=== PATIENT | female | born 1945 | race Caucasian/White ===

== ENCOUNTER → 2016-04-24 | Outpatient (CLI) | payer OTHER ==
[~2016-04-24] MED LIST: ADVA115A INH; BIOTPOW20 OR; COUM2.5T11 PO; FURO40TA2 PO; MELO15TA4 PO; OMEP40CA2 PO; PERC5TAB6 PO; PRED1TABL PO; PROVENTIL; TEGR200T PO; advair INH; calcium OR; fish oil OR; iron OR; magnesium OR; systane OU; vitamin D OR
[2016-04-24 11:08] LABS: INR 0.99
[2016-04-24 11:37] LABS: MEAN CORPUSCULAR HEMOGLOBIN 27.6 pg (27.0-33.0); MEAN CORPUSCULAR HGB CONC 32.3 g/dl (32.0-36.5); MEAN CORPUSCULAR VOLUME 85.6 fl (80.0-96.0); RED CELL DISTRIBUTION WIDTH 13.2 % (11.5-14.5); WHITE BLOOD COUNT 6.8 K/mm3 (4.0-10.0)
[2016-04-24 11:43] LABS: ALBUMIN 3.8 GM/DL (3.2-5.2); ALBUMIN/GLOBULIN RATIO 1.09 (1.00-1.93); ALKALINE PHOSPHATASE 114 U/L (45-117); ALT/SGPT 13 U/L (12-78); ANION GAP 8 MEQ/L (8-16); AST/SGOT 13 U/L (15-37); BILIRUBIN,TOTAL 0.6 MG/DL (0.2-1.0); BLOOD UREA NITROGEN 15 MG/DL (7-18); CALCIUM LEVEL 8.8 MG/DL (8.8-10.2); CARBON DIOXIDE LEVEL 31 MEQ/L (21-32); CHLORIDE LEVEL 100 MEQ/L (98-107); CREATININE FOR GFR 0.57 MG/DL (0.55-1.02); GLOMERULAR FILTRATION RATE > 60.0 (>45); GLUCOSE, FASTING 100 MG/DL (80-110); POTASSIUM SERUM 3.6 MEQ/L (3.5-5.1); SODIUM LEVEL 139 MEQ/L (136-145); TOTAL PROTEIN 7.3 GM/DL (6.4-8.2)
--- NOTE | 2016-04-24 12:01 | REP ---
Chest two views HISTORY: Asthma Comparison: 05/23/2015 The lungs are clear. The heart is normal in size. The pulmonary vasculature is normal in appearance. A hiatal hernia is present. The bony structure is intact. IMPRESSION: No acute disease. Signed by Duglas Rivera MD 04/24/2016 11:53 A
== END ==
LOC: M ADMPAT 09:14
PROVIDERS: ATTEND Orthopaedic Surgery
DX: Z01.818 Encounter for other preprocedural examination (principal); M17.12 Unilateral primary osteoarthritis, left knee; Z79.899 Other long term (current) drug therapy

== ENCOUNTER 2016-05-08 05:44 | Inpatient (IN) | payer OTHER ==
[2016-04-24 10:42] VITALS: BP 120/78
--- NOTE | 2016-05-03 14:58 | HPE ---
DATE OF ADMISSION: 05/08/2016 ADMISSION DIAGNOSIS: Symptomatic left knee osteoarthritis. HISTORY OF PRESENT ILLNESS: This is a pleasant female with continuing symptomatic left knee osteoarthritis. She has consented for a left total knee arthroplasty per Dr. Barrie Acosta. Medical optimization per Marcelino Joe. X-rays are consistent with advanced osteoarthritis. ALLERGIES: None known to drugs. CURRENT MEDICATION LIST: Includes: - vitamin C 500 mg one tablet orally daily as needed - aspirin 81 mg daily released one tablet orally once a day - nebulizer tubing mouth piece for use with inhalation medications as needed - Mucinex 600 mg extended release 12 hour one tablet as needed orally every 12 hours - multivitamin gset-pfi-qfqsqxc tablet one tablet orally daily - prednisone 1 mg tablet three tablets orally daily - Advair HFA 115-21 mcg/ACT aerosol two puffs twice a day - Ventolin HFA 108 (90 base mcg/ACT solution two puffs inhalation every 6 hours as needed - calcium 600 plus D 600-400 mg unit tablet one tablet orally twice daily - vitamin D 5000 unit tablet one orally once daily - Lasix 40 mg tablet one tablet orally twice daily - omeprazole 20 mg capsule delayed release one capsule orally daily - Mobic 15 mg one tablet orally once a day - hydrocodone/acetaminophen 5/325 tablet one tablet orally twice daily as needed , MDD 2. - Flonase 15 mcg/ACT suspension one puff in each nostril nasally once a day as needed - Claritin 10 mg tablet one tablet orally once a day - Tegretol 100 mg tablet chewable one tablet orally twice a day - ferrous sulfate - folic acid one capsule orally twice a day - compression stockings 20-30 mmHg, thigh high, venous stasis leg edema daily Medications that were stopped: Her levofloxacin, amoxicillin, omega 3, vitamin B12, ferrous sulfate 325 (65 FE), Zostavax, zinc, Tessalon. MEDICAL PROBLEM LIST: Includes: 1. Symptomatic left knee osteoarthritis. 2. Polymyalgia rheumatica. 3. Bilateral lower extremity edema. 4. Mild persistent asthma, uncomplicated. 5. Vitamin D deficiency. 6. Obstructive sleep apnea. 7. Gastroesophageal reflux disease (GERD) without esophagitis. 8. Obesity. PAST SURGICAL HISTORY Positive for thyroidectomy, subtotal 1949. Appendectomy 1971. Dilatation and curettage 1971 and 1985. Carpal tunnel release right 1999. Bunionectomy 12/2003. Hammertoe 12/2003. Alvarez's cyst removal 08/2005. Cataracts bilaterally 04/2007, 05/2007. EGD by Dr. Barrientos in 2003 and 2009. Colonoscopy 2000, 2003, and 2009. [facility] biopsy. Carpal tunnel release left Barrie Acosta 2010. Right total knee replacement Dr. Acosta, 06/06/2015. FAMILY HISTORY: Pertinent for coronary artery disease, diabetes, dementia, hypertension and CVA. SOCIAL HISTORY: She is a former smoker. It has been greater than 10 years since she has had a cigarette. Minimal ethanol intake. Denies illicit drugs. REVIEW OF SYSTEMS: Denies chest pain, shortness breath, dyspnea on exertion, fever, chills, malaise, upper respiratory or urinary tract symptoms. PHYSICAL EXAMINATION: Blood pressure 132/74, height 5 feet, weight 245, pulse 76, respirations 16, temperature 97.9. She is a pleasant obese white female in no acute distress. Alert and orientated times three. Mood and affect are appropriate. She is ambulating with a cane, slow steady favoring of the right lower extremity, antalgia about the left. Left lower extremity was inspected. Skin temperature, color, sensory and motor within normal limits. Knee range of motion is with crepitus and pain through flexion and extension, range is near zero extension. Flexion is just past 90. She is stable about the collateral ligaments, patella and quad tendons without palpable defects, can do a straight leg raise. No popliteal fossa mass or pain. Hip range of motion is not limited or irritable. Skin is intact at the bilateral lower extremities without significant edema. No infection. Bowels soft, nontender. Chest rises symmetrically. Neck supple. Negative jugular venous distention (JVD) or bruits. Normocephalic. Labs were reviewed. Leukocyte esterase trace. Urine blood 1+. EKG normal sinus rhythm. Chest x-ray no acute disease. Nasal, sinus and urine cultures showed no growth. IMPRESSION: 1. Left knee symptomatic osteoarthritis. 2. Patient consented for left total knee arthroplasty per Dr. Acosta. 3. Medical optimization per Ben Joe. 4. On-call to OR 2 grams IV Kefzol in OR. 5. Sequential compression devices (SCD) and TEDS in OR. 6. Patient had concern that she has recently been taking Tegretol for trigeminal neuralgia and it has given bouts of diarrhea. Therefore, she wants to make sure potential post operative stool softeners are considered. 7. Patient is also noting a history of some irritation secondary CAROLYN stockings. VALE
[2016-05-08] VITALS (7 sets, daily range): BP systolic 108–167; BP diastolic 55–75
[~2016-05-08] VITALS: Ht 152.4 cm; Wt 108.4 kg
[2016-05-08] MEDS ORDERED: LR 1,000 ML IV SCH ×3 (06:15→12:45)
[2016-05-08] MEDS ORDERED: ACETAMINOPHEN 500 MG TAB PO ONE (06:15)
[2016-05-08] MEDS ORDERED: COUM1TAB17 PO (06:22)
[2016-05-08] MEDS ORDERED: fentaNYL 100 MCG/2 ML INJECTION (J3010) As Ordered ONE ×2 (06:54→08:58)
[2016-05-08] MEDS ORDERED: MIDAZOLAM INJ 2 MG/2 ML VIAL (J2250) As Ordered ONE ×2 (06:54→09:45)
[2016-05-08] MEDS ORDERED: TYLE500T78 PO (06:58)
[2016-05-08] MEDS ORDERED: BUPIVACAINE HCL 0.5% 10 ML VIAL As Ordered ONE (07:21)
[2016-05-08] MEDS ORDERED: ROPIvacaine 0.5% 30 ML INJECTION (J2795) As Ordered ONE (07:21)
[2016-05-08] MEDS ORDERED: EPINEPHrine INJ 1 MG/ML 1ML VIAL/AMP As Ordered ONE (07:21)
[2016-05-08] MEDS ORDERED: TRANEXAMIC ACID 100 MG/ML 10ML VIAL As Ordered ONE (07:21)
[2016-05-08] MEDS ORDERED: ceFAZolin 1GM INJ (J0690) As Ordered ONE (07:22)
[2016-05-08] MEDS ORDERED: MIDAZOLAM INJ 2 MG/2 ML VIAL (J2250) IV ONE (07:45)
[2016-05-08] MEDS ORDERED: fentaNYL 100 MCG/2 ML INJECTION (J3010) IV ONE (07:45)
[2016-05-08] MEDS ORDERED: ROCURONIUM BROMIDE 50 MG/5 ML VIAL As Ordered ONE (09:45)
[2016-05-08] MEDS ORDERED: fentaNYL 250 MCG/5 ML INJECTION (J3010) As Ordered ONE (09:45)
[2016-05-08] MEDS ORDERED: PROPOFOL 200 MG/20 ML VIAL As Ordered ONE (09:45)
[2016-05-08] MEDS ORDERED: HYDROmorphone HCL 2 MG/ML 1ML VIAL (J1170) As Ordered ONE (09:47)
[2016-05-08] MEDS ORDERED: NEOSTIGMINE 1MG/ML 5 ML SYRINGE (J2710) As Ordered ONE (09:54)
[2016-05-08] MEDS ORDERED: GLYCOPYRROLATE INJ 0.2 MG/ML 2 ML VIAL As Ordered ONE (09:54)
[2016-05-08] MEDS ORDERED: EPINEPHrine INJ 1 MG/ML 1ML VIAL/AMP ONE (10:24)
[2016-05-08] MEDS ORDERED: ROPIvacaine 0.5% 30 ML INJECTION (J2795) ONE (10:24)
[2016-05-08] MEDS ORDERED: dexameTHASONE 10 MG/1 ML VIAL PRES.FREE (J1100) ONE (10:24)
[2016-05-08] MEDS ORDERED: MORPHINE PCA 1MG/ML 100ML CADD As Ordered ONE (12:06)
[2016-05-08] MEDS: fentaNYL 100 MCG/2 ML INJECTION (J3010) IV PRN ×4 (12:09→12:51)
[2016-05-08] MEDS ORDERED: NALOXONE INJ 0.4 MG/1 ML VIAL (J2310) IV PRN (12:45)
[2016-05-08] MEDS ORDERED: FLEET ENEMA PR PRN (12:45)
[2016-05-08] MEDS ORDERED: PATIENT IS CURRENTLY ON AN ON-Q PAIN BUSTER PAIN RELIEF SYSTEM XX SCH (12:45)
[2016-05-08] MEDS ORDERED: diphenhydrAMINE INJ 50MG/ML VIAL (J1200) IV PRN (12:45)
[2016-05-08] MEDS ORDERED: NALBUPHINE HCL 10 MG/ML AMP (J2300) IV PRN (12:45)
[2016-05-08] MEDS ORDERED: HYDROmorphone HCL 1 MG/ML SYRINGE (J1170) IV PRN (12:45)
[2016-05-08] MEDS ORDERED: ACETAMINOPHEN TAB 650MG DOSE (2X325MG) PO PRN (12:45)
[2016-05-08] MEDS ORDERED: EPIDURAL/PCA KEYS XX PRN (12:45)
[2016-05-08] MEDS ORDERED: ONDANSETRON 4MG/2ML VIAL (J2405) IV PRN ×2 (12:45)
[2016-05-08] MEDS ORDERED: MORPHINE PCA 1MG/ML 100ML CADD IV PRN (12:45)
[2016-05-08] MEDS: PERCOCET 5MG/325MG TAB PO PRN ×2 (13:15→13:35)
[2016-05-08] MEDS: LR 1,000 ML IV SCH (16:29)
[2016-05-08] MEDS ORDERED: IPRATROPIUM 0.5MG/ALBUTEROL 2.5MG INH SOL UD 3ML (DUONEB)(J7620) NEB PRN (16:30)
[2016-05-08] MEDS ORDERED: WARFARIN SOD 5 MG TAB PO SCH (17:00)
--- NOTE | 2016-05-08 17:36 | RO ---
DATE OF PROCEDURE: 05/08/2016 PREPROCEDURE DIAGNOSIS: Valgus degenerative arthritis of left knee. POSTPROCEDURE DIAGNOSIS: Valgus degenerative arthritis of left knee. PROCEDURE: Left total knee arthroplasty using cruciate-sacrificing size #3 femoral component with a 10 mm rotating platform posterior stabilized polyethylene insert with a 2.5 mm metal tibial tray with a 32 mm polyethylene button. All components were cemented. Prosthesis was made by [employer]. It was a PFC knee. SURGEON: Dr. Harsha Acosta [employer] PROGRAMMER: Mr. Rolo Joshi ANESTHESIA: General endotracheal tube anesthesia. SPECIMENS: Joint surface. ESTIMATED BLOOD LOSS: Less than 20 mL. Postoperative PainBuster catheter utilized. DESCRIPTION OF PROCEDURE: Antibiotics were given intravenously preoperatively and then after a left femoral nerve block was attempted and then an attempted spinal which was unable to be obtained, a general endotracheal tube anesthetic was established. Tourniquet was placed on the left upper thigh, not inflated, then the left lower extremity was prepped and draped in the usual sterile fashion and then elevated. After appropriate time out, the tourniquet was inflated and then we made a longitudinal incision for a medial parapatellar approach to the knee. She had a very large lipomatous distal thigh, and we took our time to carefully dissect down through the fatty tissue, making sure we had good hemostasis with the Bovie down to the joint capsule and medial parapatellar arthrotomy performed. Limited subperiosteal dissection medially was performed on the tibia. We released laterally along the proximal tibia. We were unable to marely the patella initially, so we subluxed it laterally, flexed the knee, excised the anterior cruciate ligament (ACL), then placed the drill down the center of the femoral canal, followed by the distal femoral cutting jig, initially set at 5 degrees of valgus. I did take off all remaining cartilage off the medial femoral condyle such that the jig would fit as flush as possible. We set it at 7, it fit a little bit better but then I wanted to be sure we were not taking off too much distal lateral femoral bone stock, did not want to have to augment. Thus, I switched back to the 5 degree valgus cut at 10 mm resection level and pinned the block into that position and then performed the distal femoral cut. AP sizing jig measured between a 2-1/2 and a 3; thus, I pinned it at that position and called for a size #3 4-in-1 block. The external rotation pins were placed, followed by the 4-in-1 block, and then we made sure that we appeared to be parallel to the epicondylar axis and perpendicular to Gordon's line. Parallel to the epicondylar axis and the [place]'s line appeared to be perpendicular to that line as well. Anterior, posterior, chamfer cuts were then performed. We then exposed the proximal tibia. She had a significant lateral dishing on the tibial condyle, not the femoral condyle. But I set it such that we were taking 10 mm off the good side medially and that allowed us to take at least 2 mm off the lateral side. Block was pinned into position, and then we made sure we were parallel to the mechanical axis using the extramedullary alignment jig, then performed a proximal tibial osteotomy and the resection came out just right. We then placed the lamina [employer] laterally, performed a completion medial meniscectomy, debridement of the posterior medial osteophytes, then placed the lamina [employer] laterally and performed a completion lateral meniscectomy and debridement of remaining posterolateral osteophytes. A 10 mm block did fit, but it was a bit tight laterally, felt nicely balanced medially. Thus, I did do a limited lateral release by making small stab incisions with a 15 blade along the tight posterolateral lateral collateral ligament structure and this allowed a bit better balance. But a 10 mm fit nice in both flexion and extension with good stability. It is noteworthy that actually prior to doing the soft tissue balance, I actually went ahead and excised the remaining portion of the anterior cruciate ligament (ACL) and the posterior cruciate ligament (PCL) and then performed a box osteotomy with the distal femoral jig. Once that had been completed, then I did the spacer blocks and then balanced it with a small lateral release. We then exposed the proximal tibia, sized for a 2.5 tray, which was pinned, reamed and broached in position followed by the femoral component, then the trial polyethylene, 10 mm, was placed and, again, the knee was very stable to varus/valgus stress testing in flexion and in extension, and she had good range of motion. We brought the knee into extension, everted the patella, performed a patellar osteotomy, sized for a 32 button, lug holes drilled, patellofemoral prosthesis was placed and the patellofemoral tracking showed just a little bit of tendency for lateral translation; thus, I did do a limited lateral retinacular release from inside. I felt this was the appropriate size components to use. Thus, at this point, my food and nutrition services assistant, Mr. Rolo Joshi, mixed the cement on the back table. He was also critical to the success of this difficult operation by appropriately manipulating the knee, applying appropriate soft tissue retraction and helped close the wound and helped prepare the patient amongst many other tasks. While he was mixing the cement on the back table, I removed all of the trial components and prepared the bone surfaces for cementing with a copious amount of pulsatile lavage irrigant solution, dried the surfaces thoroughly. Then, we cemented the tibial tray, removed the excess cement, cemented the femoral component, removed the excess cement, then placed the polyethylene and brought the knee into extension and then cemented the patellar button and held it with a clamp until the cement had hardened. We copiously irrigated out the knee joint as the cement was hardening, then placed the tranexamic acid. Then, we began closing the arthrotomy by first doing a bit of a [id number] to help tighten medially, such to improve patellofemoral tracking with two #1 PDS sutures. I closed the apex with two #1 PDS sutures, then a running #1 Stratafix was used, double-armed, to close the capsule, then the tourniquet was released. We irrigated between layers, placed the PainBuster catheter at this point, after the arthrotomy had been closed, and then we closed the deep subdermal tissues with a double layer, given the large amount of adipose tissue, of PDS sutures, then the skin was closed with cyndee, covered with a Adaptic dry sterile bulky dressing. She was then awakened from general endotracheal tube anesthesia after having tolerated the procedure well and transferred to the recovery room in stable condition. There were no intraoperative complications.
--- NOTE | 2016-05-08 17:47 | CR.PDOC ---
[facility] Consultation Consultation DATE OF CONSULTATION: 05/08/16 PRIMARY CARE PHYSICIAN: Marcelino DELATORRE REFERRING PROVIDER: Dr. Barrie Acosta ATTENDING PHYSICIAN: Dr. Pineda Johnson REASON FOR CONSULTATION/CHIEF COMPLAINT: Medical management. HISTORY OF PRESENT ILLNESS: 70-year-old with a past medical history of osteoarthritis, symptomatic left knee osteoarthritis, polymyalgia rheumatica, trigeminal neuralgia, bilateral lower extremity edema, mild uncomplicated persistent asthma , vitamin D deficiency, obstructive sleep apnea on CPAP at setting 13, GERD without esophagitis, obesity, is presenting to [facility] status- post left total knee arthroplasty for symptomatic left knee osteoarthritis postoperative day #0. States that she has had pain in her left knee for at least 20 years that was bothering her and it was progressively worsening. Procedure was done by Dr. Barrie Acosta. She denies fever, chills, chest pain, shortness of breath, vomiting, abdominal pain, diarrhea, constipation, rashes or lesions anywhere. She admits to nausea, and 4 out of 10 pain in her left buttock radiating down to her right calf just below the knee that she attributes to sciatic nerve pain. She denies pain in her left knee at this time. The hospitalist team was consulted for medical management. ALLERGIES: Environmental and seasonal HOME MEDICATIONS: Prednisone 3 mg daily (1 mg tablet 3 tablets orally daily) Carbamazepine 100 mg 3 times a day Lasix 40 mg 1 tablet twice a day Prilosec 20 mg daily Meloxicam 15 mg one tablet orally once a day--being held due to starting coumadin for DVT ppx Advair HFA 115-21 mcg/ACT aerosol 2 puffs twice a day Ventolin HFA 108 (90 base mcg/ACT solution 2 puffs inhalation q6 hours PRN Ferrous sulfate twice a day Vitamin D3 5000 unit tablet one orally once daily Calcium 600 plus D 600-400 mg unit tablet one tablet PO BID Vitamin C 500 mg 1 tablet orally daily when necessary Aspirin 81 mg daily 1 tablet orally once a day Nebulizer tubing mouthpiece for use with inhalation medications as needed Mucinex 600 mg extended release 12 hour 1 tablet as needed orally every 12 hours Multivitamin abfy-irl-qqxldpf tablet 1 tablet orally daily Omeprazole 20 mg capsule delayed release one capsule orally daily Hydrocodone/Acetaminophen 5/325 one tablet orally twice daily as needed, MDD: 2 Flonase 15 mcg/ACT suspension one puff in each nostril nasally once a day as needed Claritin 10 mg tablet one tablet orally once a day Tegretol 100 mg tablet chewable one tablet orally twice a day Folic Acid one capsule orally twice a day PAST MEDICAL HISTORY: Symptomatic left knee osteoarthritis And polymyalgia rheumatica Trigeminal Neuralgia Lateral lower extremity edema Mild persistent asthma uncomplicated. Vitamin D deficiency. History of sleep apnea. Obstructive sleep apnea not on oxygen, CPAP: 13 Obesity. Osteoarthritis GERD without esophagitis. PAST SURGICAL HISTORY: Subtotal thyroidectomy 1950 Appendectomy 1971 Dilatation and curettage 1971 in 1985 Right Carpal tunnel release 1999 Left carpal tunnel release 2010, Dr. Barrie Acosta Bunionectomy December 2003 Hammertoe December 2003 Alvarez cyst removal August 2005 Bilateral cataracts April 2007, May [address] Barrientos in 2009 Colonoscopy 2000, 2003, and 2009 [facility] Biopsy Right total knee replacement Dr. Acosta 06/06/15 FAMILY HISTORY: Father: Massive coronary, [place] Mother: Hypertension, heart disease Siblings: Sister who of CVA, had hypertension and diabetes Coronary artery disease, diabetes, dementia, hypertension, and CVA. SOCIAL HISTORY: Marital status and/or living arrangements: Lives at home alone with one dog. Occasionally, has grandchildren over. Employment: Retired nurse at [employer] Tobacco use: Smoked 1 pack per day for around 2 years. Has not smoked in greater than 40 years. ETOH: Drinks occasionally once or twice a month, never more than 2 drinks in a day. Illicit drug use: Denies IV drug use: Denies Other relevant social factors: Admits to pneumonia shot in 2011 and 2015, but states that there is one more pneumonia shot that she needs now. Admits to flu shot received in fall of 2016. REVIEW OF SYSTEMS: CONSTITUTIONAL: Denies fevers, chills HEENT: Denies headache CARDIOVASCULAR: Denies chest pain RESPIRATORY: Denies shortness of breath GENITOURINARY: Denies urinary frequency, dysuria, hematuria MUSCULOSKELETAL: Denies left knee pain. Admits to swelling in her lower extremities bilaterally that are chronic. Admits to sciatic nerve pain in her left buttock radiating down to her left calf just below the knee. GASTROINTESTINAL: Denies abdominal pain, vomiting, diarrhea, constipation. Admits to nausea. SKIN: Denies rashes or lesions anywhere. NEUROLOGICAL: Denies dizziness. PSYCHIATRIC: Denies depressed or anxious mood. ENDOCRINE: Denies fatigue, heat intolerance/cold intolerance. HEMATOLOGIC/LYMPHATIC: Denies easy bruising or bleeding. ALLERGIC/IMMUNOLOGIC: Admits to environmental/seasonal allergies. PHYSICAL EXAMINATION: MOST RECENT VITAL SIGNS: Temperature 97.9, pulse 77, respiratory rate 16, blood pressure 120/59, pulse ox: 95% on 2 L nasal cannula I/O: 320/300, +20 mL balance, weight: 111 kg GENERAL APPEARANCE: Pleasant, obese, elderly female who is resting comfortably in bed. Awake, alert, oriented 3. In no acute distress. HEENT: Normocephalic atraumatic. Sclera nonicteric. No external nasal deformities. Lips intact. RESPIRATORY: Lungs clear to auscultation bilaterally. No wheezes, rales, rhonchi. CARDIOVASCULAR: Positive S1, S2. Regular rate and rhythm. Distant heart sounds likely secondary to body habitus.. ABDOMEN: Soft, obese, nontender to palpation, nondistended, bowel sounds hypoactive but present. EXTREMITIES: Positive left lower extremity pitting edema and mild right lower extremity edema appreciated bilaterally. Left knee wrapped postsurgically. VASCULAR: +2 dorsalis pedis pulses palpable bilaterally. +2 radial pulses palpable bilaterally. NEUROLOGICAL: No focal neurologic deficits appreciated bilaterally PSYCHIATRIC: Normal mood and affect. Cooperative. LABORATORY DATA: No new labs today. ASSESSMENT/PLAN: 70-year-old female with past medical history of symptomatic left knee osteoarthritis, positive polymyalgia rheumatica, trigeminal neuralgia, bilateral lower chicas edema, uncomplicated mild persistent asthma, vitamin D deficiency, history of sleep apnea, GERD, obesity, osteoarthritis, seasonal allergies, is presenting status post left total knee arthroplasty postoperative day #0. The hospitalist team is being consulted for medical management. Left knee osteoarthritis status post left total knee replacement: Perioperative management, pain management, physical therapy, activity, diet, and DVT prophylaxis as per orthopedics. Monitor daily CBC, BMP, PT/INR (patient on coumadin as per Orthopedics). Bowel Regimen as per Primary Team: Sendiamondot S Polymyalgia rheumatica: Continue prednisone 3 mg daily. Follow up as outpatient. Trigeminal neuralgia: Continue carbamazepine 200 mg 3 times a day Bilateral lower extremity edema: Hold Lasix today. We'll restart tomorrow as per primary team. We'll monitor daily weights and I's and O's. Monitor daily Mg levels. Mild persistent asthma uncomplicated: Continue Advair and duo nebs as needed. Vitamin D deficiency: Continue home meds including vitamin D3 5000 units and calcium. Obstructive sleep apnea: Patient has CPAP at bedside from home. Follow-up KENDALL protocol and use home CPAP daily. GERD without esophagitis: Continue omeprazole. Obesity: Recommend weight loss, diet, and exercise as tolerated. Physical therapy as per orthopedics. Environmental seasonal allergies: Continue home medications including Mucinex, Flonase, Claritin. DVT prophylaxis: Has been placed on Coumadin as per orthopedics. Being managed by orthopedics. GI prophylaxis: Continue home medication of omeprazole 20 mg daily. CODE STATUS: Full code Healthcare proxy: Son: Roosevelt Daly, Alternate: Daughter Mary Estevez Vital Signs/I&O Vital Signs Date Time Temp Pulse Resp B/P Pulse Ox O2 Delivery O2 Flow Rate FiO2 05/08/16 14:15 2.0 05/08/16 13:55 97.9 77 16 120/59 95 Nasal Cannula Allergies Coded Allergies: No Known Allergies (Verified Allergy, Unknown, 12/31/03) Home Medications Scheduled ([calcium]) 600 TAB OR BID (Reported) ([fish oil]) 1,200 MG OR DAILY (Reported) ([iron]) 1 TAB OR BID (Reported) ([magnesium]) 1 TAB OR DAILY (Reported) ([proventil inh]) PRN (Reported) ([systane]) 1 DROP OU QID (Reported) ([vitamin D]) 5,000 UNITS OR DAILY (Reported) Biotin (Vitamin H) (Biotin) 1 Pow Pow 1 TAB OR DAILY (Reported) Carbamazepine (Tegretol) 200 Mg Tab 100 MG PO TID (Reported) Furosemide (Furosemide) 40 Mg Tab 40 MG PO BID (Reported) Omeprazole (Omeprazole) 40 Mg Cap 40 MG PO DAILY (Reported) Prednisone (Prednisone) 1 Mg Tab 3 MG PO DAILY (Reported) Salmeterol/Fluticasone (Advair Hfa 115-21 Mcg/Act) 1 Aer Aer 2 PUFF INH BID ( Reported) Warfarin Sod (Coumadin) 2.5 Mg Tab #90 1 TAB PO ASDIRECTED MDD = 6 tabs Scheduled PRN Acetaminophen (Tylenol Extra Strength) 500 Mg Tab 500 MG PO PRN PRN (Reported) Oxycodone/Acetaminophen (Percocet 5-325 mg) 1 Tab Tab #40 1-2 TAB PO Q4H PRN PRN PAIN MDD = 8 GME ATTESTATION GME ATTESTATION My preceptor for this patient encounter was Dr. Susana Lares, and was physically present in the building during the encounter and was fully available. As needed , all aspects of the patient interview, examination, medical decision making process, and medical care plan development were reviewed and approved by the preceptor. Preceptor is aware and concurs with the plan as stated in the body of this note and will attest to such by his/her cosignature. ATTENDING NOTE I have both independently examined this patient as well as reviewed the H&P. I have discussed in detail with the resident the findings and plan of treatment as documented in the residents note. I will continue to follow the patient and offer further guidance to the patients care as necessary during this hospital stay. Susana DOBSON,LUIS ENRIQUE OGME-1 May 08, 2016 17:47 SUSANA LARES MD May 14, 2016 08:36
[2016-05-08] MEDS: predniSONE 1 MG TAB PO SCH (17:48)
[2016-05-08] MEDS: carBAMazepine XR 100 MG TAB PO SCH ×2 (17:49→21:41)
[2016-05-08] MEDS: ADVAIR HFA 115/21 INHALER INH SCH (21:00)
[2016-05-08] MEDS: SENOKOT S TAB PO SCH ×2 (21:00→21:41)
[2016-05-09] MEDS: LR 1,000 ML IV SCH (01:15)
[2016-05-09 02:00] VITALS: BP 133/86
[2016-05-09 06:00] VITALS: BP 141/63
[2016-05-09] MEDS ORDERED: PERCOCET 5MG/325MG TAB PO PRN (06:45)
[2016-05-09] MEDS ORDERED: ONDANSETRON 4 MG TAB (S0181) PO PRN (06:45)
[2016-05-09 08:22] LABS: INR 1.36
[2016-05-09 08:25] LABS: ANION GAP 9 MEQ/L (8-16); BLOOD UREA NITROGEN 8 MG/DL (7-18); CALCIUM LEVEL 8.4 MG/DL (8.8-10.2); CARBON DIOXIDE LEVEL 28 MEQ/L (21-32); CHLORIDE LEVEL 100 MEQ/L (98-107); CREATININE FOR GFR 0.68 MG/DL (0.55-1.02); GLOMERULAR FILTRATION RATE > 60.0 (>45); GLUCOSE, FASTING 122 MG/DL (80-110); MAGNESIUM LEVEL 1.7 MG/DL (1.8-2.4); POTASSIUM SERUM 3.8 MEQ/L (3.5-5.1); SODIUM LEVEL 137 MEQ/L (136-145)
[2016-05-09] MEDS: predniSONE 1 MG TAB PO SCH (08:34)
[2016-05-09] MEDS: MIRALAX *UNIT DOSE* 17GM PACKET PO SCH (08:35)
[2016-05-09] MEDS: OMEPRAZOLE 20 MG CAP PO SCH (08:35)
[2016-05-09] MEDS: PERCOCET 5MG/325MG TAB PO PRN ×4 (08:35→23:32)
[2016-05-09] MEDS: MOM 30ML SUSPENSION UDC PO SCH (08:35)
[2016-05-09] MEDS: SENOKOT S TAB PO SCH ×2 (08:36→20:46)
[2016-05-09 08:43] LABS: MEAN CORPUSCULAR HEMOGLOBIN 27.3 pg (27.0-33.0); MEAN CORPUSCULAR HGB CONC 31.7 g/dl (32.0-36.5); RED CELL DISTRIBUTION WIDTH 12.8 % (11.5-14.5); WHITE BLOOD COUNT 8.5 K/mm3 (4.0-10.0)
--- NOTE | 2016-05-09 09:44 | REP ---
Clinical: Status post knee replacement. Technique AP and cross-table lateral views. Findings: The patient is status post left knee replacement with normal positioning and appearance to the femoral and tibial components. Overlying postsurgical changes appreciated. Impression: Status post left knee replacement. Signed by Ben Broussard MD 05/09/2016 09:35 A
[2016-05-09] MEDS: carBAMazepine XR 100 MG TAB PO SCH ×3 (11:16→20:46)
[2016-05-09] MEDS: ADVAIR HFA 115/21 INHALER INH SCH ×2 (12:27→20:54)
[2016-05-09 14:00] VITALS: BP 136/65
[2016-05-09] MEDS ORDERED: WARFARIN SOD 5 MG TAB PO ONE (17:00)
[2016-05-09 22:00] VITALS: BP 166/72
[2016-05-10] MEDS: PERCOCET 5MG/325MG TAB PO PRN ×5 (04:32→21:07)
[2016-05-10 06:00] VITALS: BP 146/70
[2016-05-10] MEDS: ADVAIR HFA 115/21 INHALER INH SCH ×2 (07:08→20:10)
[2016-05-10 08:04] LABS: MEAN CORPUSCULAR HEMOGLOBIN 27.7 pg (27.0-33.0); MEAN CORPUSCULAR HGB CONC 33.1 g/dl (32.0-36.5); MEAN CORPUSCULAR VOLUME 83.6 fl (80.0-96.0); RED CELL DISTRIBUTION WIDTH 12.6 % (11.5-14.5); WHITE BLOOD COUNT 7.9 K/mm3 (4.0-10.0)
[2016-05-10 08:10] LABS: INR 1.96
[2016-05-10 08:14] LABS: ANION GAP 7 MEQ/L (8-16); BLOOD UREA NITROGEN 6 MG/DL (7-18); CALCIUM LEVEL 8.1 MG/DL (8.8-10.2); CARBON DIOXIDE LEVEL 30 MEQ/L (21-32); CHLORIDE LEVEL 99 MEQ/L (98-107); CREATININE FOR GFR 0.45 MG/DL (0.55-1.02); GLOMERULAR FILTRATION RATE > 60.0 (>45); GLUCOSE, FASTING 132 MG/DL (80-110); MAGNESIUM LEVEL 1.8 MG/DL (1.8-2.4); POTASSIUM SERUM 3.6 MEQ/L (3.5-5.1); SODIUM LEVEL 136 MEQ/L (136-145)
[2016-05-10] MEDS: carBAMazepine XR 100 MG TAB PO SCH ×3 (08:49→21:07)
[2016-05-10] MEDS: predniSONE 1 MG TAB PO SCH (08:49)
[2016-05-10] MEDS: SENOKOT S TAB PO SCH ×2 (08:50→21:00)
[2016-05-10] MEDS: MOM 30ML SUSPENSION UDC PO SCH (08:50)
[2016-05-10] MEDS: MIRALAX *UNIT DOSE* 17GM PACKET PO SCH (08:50)
[2016-05-10] MEDS: OMEPRAZOLE 20 MG CAP PO SCH (08:50)
[2016-05-10 14:00] VITALS: BP 142/67
[2016-05-10] MEDS ORDERED: WARFARIN SOD 1 MG TAB PO ONE (17:00)
[2016-05-10 22:00] VITALS: BP 168/70
[2016-05-11] MEDS: PERCOCET 5MG/325MG TAB PO PRN ×3 (02:15→12:20)
[2016-05-11 06:00] VITALS: BP 170/71
[2016-05-11 07:03] LABS: MEAN CORPUSCULAR HEMOGLOBIN 27.5 pg (27.0-33.0); MEAN CORPUSCULAR HGB CONC 32.7 g/dl (32.0-36.5); MEAN CORPUSCULAR VOLUME 84.1 fl (80.0-96.0); RED CELL DISTRIBUTION WIDTH 12.8 % (11.5-14.5); WHITE BLOOD COUNT 6.7 K/mm3 (4.0-10.0)
[2016-05-11 07:09] LABS: INR 1.73
[2016-05-11 07:16] LABS: ANION GAP 6 MEQ/L (8-16); BLOOD UREA NITROGEN 5 MG/DL (7-18); CALCIUM LEVEL 8.5 MG/DL (8.8-10.2); CARBON DIOXIDE LEVEL 32 MEQ/L (21-32); CHLORIDE LEVEL 99 MEQ/L (98-107); GLOMERULAR FILTRATION RATE > 60.0 (>45); GLUCOSE, FASTING 111 MG/DL (80-110); MAGNESIUM LEVEL 1.9 MG/DL (1.8-2.4); POTASSIUM SERUM 3.3 MEQ/L (3.5-5.1); SODIUM LEVEL 137 MEQ/L (136-145)
[2016-05-11] MEDS ORDERED: PERC5TAB6 PO (07:54)
[2016-05-11] MEDS ORDERED: COUM2.5T11 PO (07:54)
[2016-05-11] MEDS: ADVAIR HFA 115/21 INHALER INH SCH (08:03)
[2016-05-11] MEDS: MIRALAX *UNIT DOSE* 17GM PACKET PO SCH (09:00)
[2016-05-11] MEDS: SENOKOT S TAB PO SCH (09:00)
[2016-05-11] MEDS: MOM 30ML SUSPENSION UDC PO SCH (09:00)
[2016-05-11] MEDS: carBAMazepine XR 100 MG TAB PO SCH (09:09)
[2016-05-11] MEDS: OMEPRAZOLE 20 MG CAP PO SCH (09:09)
[2016-05-11] MEDS: predniSONE 1 MG TAB PO SCH (09:09)
[2016-05-11 10:00] VITALS: BP 135/62
--- NOTE | 2016-05-15 17:47 | DSES ---
DATE OF ADMISSION: 05/08/2016 DATE OF DISCHARGE: 05/11/2016 ATTENDING DOCTOR: Dr. Harsha Acosta. ADMISSION DIAGNOSIS: Osteoarthritis left knee. OTHER DIAGNOSES: Polymyalgia rheumatica. Asthma. Vitamin D deficiency. Sleep apnea. Gastric reflux disease. Obesity. DISCHARGE DIAGNOSIS Osteoarthritis left knee status post left total knee arthroplasty. OPERATION PERFORMED: Left total knee arthroplasty. HISTORY: This is a pleasant 70-year-old female with progressively worsening left knee pain and stiffness. She failed to improve with conservative management. She was admitted for elective knee replacement on the left side. HOSPITAL COURSE: The patient was admitted on the day of surgery, underwent a left total knee arthroplasty, which was uneventful. She did well in the postoperative period and her hospital course was without complications. She was up with physical therapy per protocol and her pain was controlled. On the day of discharge, she was doing well, weightbearing as tolerated on her left lower extremity. She will move her left knee to prevent stiffness. She will use adjusted dose Coumadin and thromboembolism deterrent (CAROLYN) stockings for 30 days postoperative for deep vein thrombosis (DVT) prophylaxis. She will resume her preoperative medications and diet. She was given instructions to include but not limited to wound monitoring, activity limitations. She will use oral pain medications for pain control. She will follow up in our office in 10-14 days for surgical followup. Please refer to the medical record for further details.
== END 2016-05-11 15:00 | disposition home or self-care (01) | DRG 470 ==
LOC: M OR 05:44 → M MS5PR 14:15
PROVIDERS: ADMIT Orthopaedic Surgery; ATTEND Orthopaedic Surgery
PROC: 0SRD0J9 Replacement of Left Knee Joint with Synthetic Substitute, Cemented, Open Approach (ICD-10-PCS; principal; 2016-05-08 07:30)
DX: M17.12 Unilateral primary osteoarthritis, left knee (principal); Z68.42 Body mass index [BMI] 45.0-49.9, adult; E66.01 Morbid (severe) obesity due to excess calories; Z79.82 Long term (current) use of aspirin; Z79.899 Other long term (current) drug therapy; D64.9 Anemia, unspecified; K21.9 Gastro-esophageal reflux disease without esophagitis; E55.9 Vitamin D deficiency, unspecified; J45.909 Unspecified asthma, uncomplicated; G47.33 Obstructive sleep apnea (adult) (pediatric); M35.3 Polymyalgia rheumatica; Z87.891 Personal history of nicotine dependence; Z79.52 Long term (current) use of systemic steroids

== ENCOUNTER → 2016-05-14 | Outpatient (REF) | payer OTHER ==
[~2016-05-14] MED LIST changes: +COUM1TAB17 PO; +TYLE500T78 PO
[2016-05-14 11:21] LABS: INR 1.5
== END ==
LOC: M SHH 11:02
PROVIDERS: ATTEND Internal Medicine
DX: Z51.81 Encounter for therapeutic drug level monitoring (principal); Z79.01 Long term (current) use of anticoagulants

== ENCOUNTER → 2016-05-17 | Outpatient (REF) | payer OTHER ==
[2016-05-17 12:33] LABS: INR 1.7
== END ==
LOC: M LAB REF 11:47
PROVIDERS: ATTEND Orthopaedic Surgery
DX: Z51.81 Encounter for therapeutic drug level monitoring (principal); Z79.01 Long term (current) use of anticoagulants

== ENCOUNTER → 2016-05-21 | Outpatient (REF) | payer OTHER ==
[2016-05-21 12:59] LABS: INR 2.13
== END ==
LOC: M SHH 12:44
PROVIDERS: ATTEND Nurse Practitioner Family
DX: Z79.01 Long term (current) use of anticoagulants (principal)

== ENCOUNTER → 2016-05-24 | Outpatient (REF) | payer OTHER ==
[2016-05-24 12:28] LABS: INR 1.47
== END ==
LOC: M SHH 11:50
PROVIDERS: ATTEND Nurse Practitioner Family
DX: Z51.81 Encounter for therapeutic drug level monitoring (principal); Z79.01 Long term (current) use of anticoagulants

== ENCOUNTER → 2016-05-28 | Outpatient (REF) | payer OTHER ==
[2016-05-28 13:43] LABS: INR 1.49
== END ==
LOC: M SHH 12:26
PROVIDERS: ATTEND Nurse Practitioner Family
DX: Z51.81 Encounter for therapeutic drug level monitoring (principal); Z79.01 Long term (current) use of anticoagulants

== ENCOUNTER → 2016-05-31 | Outpatient (REF) | payer OTHER ==
[2016-05-31 13:17] LABS: INR 1.44
== END ==
LOC: M LAB REF 12:21
PROVIDERS: ATTEND Nurse Practitioner Family
DX: Z51.81 Encounter for therapeutic drug level monitoring (principal); Z79.01 Long term (current) use of anticoagulants

== ENCOUNTER → 2016-07-13 | Outpatient (REF) | payer OTHER ==
[2016-07-13 15:59] LABS: BASO % 0.3 % (0.0-1.0); EOS # 0.1 K/mm3 (0.0-0.50); EOS % 1.2 % (0.0-3.0); LARGE UNSTAINED CELL # 0.1 K/mm3 (0.0-0.4); LARGE UNSTAINED CELL % 1.1 % (0.0-4.0); LYMPH # 0.8 K/mm3 (1.5-4.5); LYMPH % 8.3 % (24.0-44.0); MEAN CORPUSCULAR HEMOGLOBIN 27.2 pg (27.0-33.0); MEAN CORPUSCULAR HGB CONC 31.5 g/dl (32.0-36.5); MEAN CORPUSCULAR VOLUME 86.2 fl (80.0-96.0); MONO # 0.7 K/mm3 (0.0-0.8); MONO % 6.7 % (0.0-5.0); NEUTROPHILS # 8.3 K/mm3 (1.8-7.7); NEUTROPHILS % 82.5 % (36.0-66.0); PLATELET COUNT, AUTOMATED 322 k/mm3 (150-450); RED CELL DISTRIBUTION WIDTH 13.2 % (11.5-14.5); WHITE BLOOD COUNT 10.1 K/mm3 (4.0-10.0)
[2016-07-13 16:35] LABS: ALBUMIN 3.7 GM/DL (3.2-5.2); ALBUMIN/GLOBULIN RATIO 1.16 (1.00-1.93); ALKALINE PHOSPHATASE 100 U/L (45-117); ALT/SGPT 15 U/L (12-78); ANION GAP 6 MEQ/L (8-16); AST/SGOT 10 U/L (15-37); BILIRUBIN,TOTAL 0.3 MG/DL (0.2-1.0); BLOOD UREA NITROGEN 15 MG/DL (7-18); CALCIUM LEVEL 8.6 MG/DL (8.8-10.2); CARBON DIOXIDE LEVEL 32 MEQ/L (21-32); CHLORIDE LEVEL 103 MEQ/L (98-107); CREATININE FOR GFR 0.54 MG/DL (0.55-1.02); GLOMERULAR FILTRATION RATE > 60.0 (>39); GLUCOSE, FASTING 104 MG/DL (83-110); POTASSIUM SERUM 3.2 MEQ/L (3.5-5.1); SODIUM LEVEL 141 MEQ/L (136-145); TOTAL PROTEIN 6.9 GM/DL (6.4-8.2)
== END ==
LOC: M LABDRAW1 15:43
PROVIDERS: ATTEND Psychiatry & Neurology Neurology
DX: G50.0 Trigeminal neuralgia (principal)

== ENCOUNTER → 2016-08-03 | Outpatient (REF) | payer OTHER | LOC: M LAB REF 13:27 | PROVIDERS: ATTEND Physician Assistant | DX: R21 Rash and other nonspecific skin eruption (principal) ==

== ENCOUNTER → 2016-08-07 | Outpatient (CLI) | payer OTHER ==
[2016-08-07 14:52] LABS: BASO % 0.6 % (0.0-1.0); EOS # 0.2 K/mm3 (0.0-0.50); LARGE UNSTAINED CELL # 0.1 K/mm3 (0.0-0.4); LARGE UNSTAINED CELL % 1.4 % (0.0-4.0); LYMPH # 1.5 K/mm3 (1.5-4.5); LYMPH % 16.9 % (24.0-44.0); MEAN CORPUSCULAR HEMOGLOBIN 26.6 pg (27.0-33.0); MEAN CORPUSCULAR HGB CONC 31.7 g/dl (32.0-36.5); MEAN CORPUSCULAR VOLUME 83.7 fl (80.0-96.0); MONO # 0.7 K/mm3 (0.0-0.8); MONO % 8.9 % (0.0-5.0); NEUTROPHILS # 5.6 K/mm3 (1.8-7.7); NEUTROPHILS % 70.1 % (36.0-66.0); PLATELET COUNT, AUTOMATED 309 k/mm3 (150-450); RED CELL DISTRIBUTION WIDTH 13.6 % (11.5-14.5)
[2016-08-07 15:42] LABS: ERYTHROCYTE SEDIMENTATION RATE 53 mm/hr (0-30)
== END ==
LOC: M WUC 09:14
PROVIDERS: ATTEND Physician Assistant
DX: Z47.1 Aftercare following joint replacement surgery (principal)

== ENCOUNTER → 2016-08-16 | Outpatient (REF) | payer OTHER ==
[~2016-08-16] MED LIST changes: -COUM2.5T11 PO; +COUM2.5T17 PO; +PERC5TAB12 PO; -PERC5TAB6 PO
[2016-08-16 13:45] LABS: BASO % 0.4 % (0.0-1.0); EOS # 0.1 K/mm3 (0.0-0.50); EOS % 0.9 % (0.0-3.0); LARGE UNSTAINED CELL # 0.1 K/mm3 (0.0-0.4); LARGE UNSTAINED CELL % 0.9 % (0.0-4.0); LYMPH # 0.9 K/mm3 (1.5-4.5); LYMPH % 6.6 % (24.0-44.0); MEAN CORPUSCULAR HEMOGLOBIN 27.6 pg (27.0-33.0); MEAN CORPUSCULAR HGB CONC 32.6 g/dl (32.0-36.5); MEAN CORPUSCULAR VOLUME 84.7 fl (80.0-96.0); MONO # 0.5 K/mm3 (0.0-0.8); MONO % 4.1 % (0.0-5.0); NEUTROPHILS # 11.3 K/mm3 (1.8-7.7); NEUTROPHILS % 87.1 % (36.0-66.0); PLATELET COUNT, AUTOMATED 326 k/mm3 (150-450); RED CELL DISTRIBUTION WIDTH 13.7 % (11.5-14.5); WHITE BLOOD COUNT 12.9 K/mm3 (4.0-10.0)
[2016-08-16 14:37] LABS: ERYTHROCYTE SEDIMENTATION RATE 37 mm/hr (0-30)
== END ==
LOC: M LABNEURO 13:21
PROVIDERS: ATTEND Orthopaedic Surgery
DX: Z96.652 Presence of left artificial knee joint (principal)

== ENCOUNTER → 2016-09-14 | Outpatient (CLI) | payer OTHER ==
[2016-09-14 15:27] LABS: BASO % 0.2 % (0.0-1.0); EOS % 0.2 % (0.0-3.0); LARGE UNSTAINED CELL # 0.1 K/mm3 (0.0-0.4); LARGE UNSTAINED CELL % 1.2 % (0.0-4.0); LYMPH # 0.8 K/mm3 (1.5-4.5); LYMPH % 9.6 % (24.0-44.0); MEAN CORPUSCULAR HEMOGLOBIN 26.3 pg (27.0-33.0); MEAN CORPUSCULAR HGB CONC 31.5 g/dl (32.0-36.5); MEAN CORPUSCULAR VOLUME 83.3 fl (80.0-96.0); MONO # 0.3 K/mm3 (0.0-0.8); MONO % 4.4 % (0.0-5.0); NEUTROPHILS # 6.1 K/mm3 (1.8-7.7); NEUTROPHILS % 84.4 % (36.0-66.0); PLATELET COUNT, AUTOMATED 294 k/mm3 (150-450); RED CELL DISTRIBUTION WIDTH 13.5 % (11.5-14.5); WHITE BLOOD COUNT 7.2 K/mm3 (4.0-10.0)
[2016-09-14 15:50] LABS: ERYTHROCYTE SEDIMENTATION RATE 31 mm/hr (0-30)
== END ==
LOC: M WUC 13:53
PROVIDERS: ATTEND Orthopaedic Surgery
DX: L08.9 Local infection of the skin and subcutaneous tissue, unspecified (principal)

== ENCOUNTER → 2016-09-20 | Outpatient (REF) | payer OTHER ==
[2016-09-20 18:18] LABS: ANION GAP 9 MEQ/L (8-16); BLOOD UREA NITROGEN 20 MG/DL (7-18); CARBON DIOXIDE LEVEL 32 MEQ/L (21-32); CHLORIDE LEVEL 97 MEQ/L (98-107); CREATININE FOR GFR 0.61 MG/DL (0.55-1.02); GLOMERULAR FILTRATION RATE > 60.0 (>39); GLUCOSE, FASTING 92 MG/DL (83-110); POTASSIUM SERUM 3.9 MEQ/L (3.5-5.1); SODIUM LEVEL 138 MEQ/L (136-145)
== END ==
LOC: M LABNEURO 16:55
PROVIDERS: ATTEND Physician Assistant
DX: L08.9 Local infection of the skin and subcutaneous tissue, unspecified (principal)

== ENCOUNTER → 2016-09-26 | Outpatient (REF) | payer OTHER | LOC: M LAB REF 18:17 | PROVIDERS: ATTEND Orthopaedic Surgery | DX: S81.002A Unspecified open wound, left knee, initial encounter (principal); X58.XXXA Exposure to other specified factors, initial encounter; Y92.89 Other specified places as the place of occurrence of the external cause; Y93.89 Activity, other specified; Y99.8 Other external cause status ==

== ENCOUNTER → 2016-10-24 | Outpatient (REF) | payer OTHER | LOC: M LAB REF 14:30 | PROVIDERS: ATTEND Surgery | DX: T81.4XXA Infection following a procedure, initial encounter (principal); Z98.890 Other specified postprocedural states; E66.9 Obesity, unspecified; Z79.899 Other long term (current) drug therapy; X58.XXXA Exposure to other specified factors, initial encounter; Y92.89 Other specified places as the place of occurrence of the external cause; Y93.89 Activity, other specified; Y99.8 Other external cause status ==

== ENCOUNTER → 2016-12-12 | Outpatient (REF) | payer OTHER | LOC: M LAB REF 17:31 | PROVIDERS: ATTEND Surgery | DX: T81.31XA Disruption of external operation (surgical) wound, not elsewhere classified, initial encounter (principal); L97.822 Non-pressure chronic ulcer of other part of left lower leg with fat layer exposed; R60.0 Localized edema; X58.XXXA Exposure to other specified factors, initial encounter; Y92.9 Unspecified place or not applicable; Y93.9 Activity, unspecified; Z96.652 Presence of left artificial knee joint ==

== ENCOUNTER → 2017-01-02 | Outpatient (CLI) | payer OTHER ==
--- NOTE | 2017-01-02 12:09 | REPMRS ---
Patient History The patient states she had a clinical breast exam in 12/2016. Patient is postmenopausal. No known family history of cancer. Digital Woman Screen Mammo: January 02, 2017 - Exam #: [id number] Bilateral CC and MLO view(s) were taken. Technologist: Lakia Fletcher, Technologist Prior study comparison: January 02, 2016, digital woman screen mammo performed at [facility] to [facility]. January 17, 2015, digital woman screen mammo performed at [facility] to [facility]. FINDINGS: There are scattered fibroglandular densities. There has been no change in the appearance of the mammogram from the prior studies. There is a mild amount of residual fibroglandular tissue which is fairly symmetric. There is no interval development of dominant mass, architectural distortion, or clustered microcalcification suggestive of malignancy. ASSESSMENT: BI-RADS/ACR category 1 mammogram. Negative. Recommendation Routine screening mammogram in 1 year (for women over age 40). This mammogram was interpreted with the aid of an FDA-approved computer-aided dectection system. Electronically Signed By: Andre Winn MD 01/02/17 [id number]
== END ==
LOC: M WHC 10:24
PROVIDERS: ATTEND Nurse Practitioner Family
DX: Z01.419 Encounter for gynecological examination (general) (routine) without abnormal findings (principal); Z12.31 Encounter for screening mammogram for malignant neoplasm of breast; Z78.0 Asymptomatic menopausal state; Z12.12 Encounter for screening for malignant neoplasm of rectum
CPT/HCPCS: 82270; G0101; G0202; G0463

== ENCOUNTER → 2017-01-04 | Outpatient (REF) | payer OTHER | LOC: M LABNEURO 08:44 | PROVIDERS: ATTEND Physician Assistant Medical | DX: M35.3 Polymyalgia rheumatica (principal); Z51.81 Encounter for therapeutic drug level monitoring; Z79.899 Other long term (current) drug therapy; Z68.42 Body mass index [BMI] 45.0-49.9, adult ==

== ENCOUNTER → 2017-01-04 | Outpatient (CLI) | payer OTHER ==
[2017-01-04 18:04] LABS: MEAN CORPUSCULAR HEMOGLOBIN 26.1 pg (27.0-33.0); MEAN CORPUSCULAR HGB CONC 30.7 g/dl (32.0-36.5); MEAN CORPUSCULAR VOLUME 85.1 fl (80.0-96.0); PLATELET COUNT, AUTOMATED 325 10^3/uL (150-450); RED CELL DISTRIBUTION WIDTH 15.4 % (11.5-14.5); WHITE BLOOD COUNT 5.2 10^3/uL (4.0-10.0)
[2017-01-04 18:08] LABS: ALBUMIN 3.6 GM/DL (3.2-5.2); ALBUMIN/GLOBULIN RATIO 1.16 (1.00-1.93); ALKALINE PHOSPHATASE 105 U/L (45-117); ALT/SGPT 16 U/L (12-78); ANION GAP 7 MEQ/L (8-16); AST/SGOT 14 U/L (7-37); BILIRUBIN,TOTAL 0.7 MG/DL (0.2-1.0); BLOOD UREA NITROGEN 16 MG/DL (7-18); CALCIUM LEVEL 9.2 MG/DL (8.8-10.2); CARBON DIOXIDE LEVEL 33 MEQ/L (21-32); CHLORIDE LEVEL 98 MEQ/L (98-107); CREATININE FOR GFR 0.57 MG/DL (0.55-1.02); FERRITIN 32 NG/ML (8-252); GLOMERULAR FILTRATION RATE > 60.0 (>39); GLUCOSE, FASTING 80 MG/DL (83-110); POTASSIUM SERUM 4.5 MEQ/L (3.5-5.1); SODIUM LEVEL 138 MEQ/L (136-145); TOTAL PROTEIN 6.7 GM/DL (6.4-8.2)
== END ==
LOC: M LABNEURO 08:49
PROVIDERS: ATTEND Nurse Practitioner Family
DX: M15.9 Polyosteoarthritis, unspecified (principal); E55.9 Vitamin D deficiency, unspecified; E61.1 Iron deficiency; M35.3 Polymyalgia rheumatica; Z51.81 Encounter for therapeutic drug level monitoring; Z79.899 Other long term (current) drug therapy

== ENCOUNTER → 2017-07-02 | Outpatient (CLI) | payer OTHER ==
[2017-07-02 18:37] LABS: ALBUMIN 3.9 GM/DL (3.2-5.2); ALKALINE PHOSPHATASE 114 U/L (45-117); ALT/SGPT 20 U/L (12-78); ANION GAP 8 MEQ/L (8-16); AST/SGOT 18 U/L (7-37); BILIRUBIN,TOTAL 0.5 MG/DL (0.2-1.0); BLOOD UREA NITROGEN 11 MG/DL (7-18); CALCIUM LEVEL 9.1 MG/DL (8.8-10.2); CARBON DIOXIDE LEVEL 28 MEQ/L (21-32); CHLORIDE LEVEL 102 MEQ/L (98-107); CHOLESTEROL LEVEL 181 MG/DL (<200); CREATININE FOR GFR 0.66 MG/DL (0.55-1.30); GLOMERULAR FILTRATION RATE > 60.0 (>39); GLUCOSE, FASTING 114 MG/DL (70-100); HDL CHOLESTEROL 55 MG/DL (>40); LDL CHOLESTEROL 112.4 MG/DL (<100); NON-HDL-C 126 MG/DL; SODIUM LEVEL 138 MEQ/L (136-145); TOTAL PROTEIN 7.8 GM/DL (6.4-8.2); TRIGLYCERIDES LEVEL 68 MG/DL (<150)
== END ==
LOC: M SMT 10:51
DX: R60.0 Localized edema (principal); Z13.220 Encounter for screening for lipoid disorders; E78.00 Pure hypercholesterolemia, unspecified
CPT/HCPCS: 80053

== ENCOUNTER → 2018-01-02 | Outpatient (CLI) | payer OTHER | LOC: M WHC 10:06 | DX: Z51.81 Encounter for therapeutic drug level monitoring (principal); Z12.31 Encounter for screening mammogram for malignant neoplasm of breast (principal); Z79.52 Long term (current) use of systemic steroids | CPT/HCPCS: 77067; 77080 ==

== ENCOUNTER → 2018-01-02 | Outpatient (CLI) | payer OTHER | LOC: M WHC 10:03 | DX: Z12.31 Encounter for screening mammogram for malignant neoplasm of breast (principal) | CPT/HCPCS: 77067 ==

== ENCOUNTER → 2018-01-06 | Outpatient (CLI) | payer OTHER ==
[2018-01-06 13:17] LABS: HEMATOCRIT 39.6 % (36.0-47.0); HEMOGLOBIN 12.6 g/dl (12.0-15.5); MEAN CORPUSCULAR HEMOGLOBIN 26.9 pg (27.0-33.0); MEAN CORPUSCULAR HGB CONC 31.8 g/dl (32.0-36.5); MEAN CORPUSCULAR VOLUME 84.4 fl (80.0-96.0); PLATELET COUNT, AUTOMATED 245 10^3/uL (150-450); RED BLOOD COUNT 4.69 10^6/uL (4.00-5.40); RED CELL DISTRIBUTION WIDTH 13.2 % (11.5-14.5); WHITE BLOOD COUNT 4.8 10^3/uL (4.0-10.0)
[2018-01-06 13:42] LABS: ALBUMIN 3.5 GM/DL (3.2-5.2); ALBUMIN/GLOBULIN RATIO 0.95 (1.00-1.93); ALKALINE PHOSPHATASE 107 U/L (45-117); ALT/SGPT 18 U/L (12-78); ANION GAP 6 MEQ/L (8-16); AST/SGOT 18 U/L (7-37); BILIRUBIN,TOTAL 0.7 MG/DL (0.2-1.0); BLOOD UREA NITROGEN 11 MG/DL (7-18); CALCIUM LEVEL 8.9 MG/DL (8.8-10.2); CARBON DIOXIDE LEVEL 30 MEQ/L (21-32); CHLORIDE LEVEL 99 MEQ/L (98-107); CREATININE FOR GFR 0.64 MG/DL (0.55-1.30); FERRITIN 64 NG/ML (8-252); GLOMERULAR FILTRATION RATE > 60.0 (>39); GLUCOSE, FASTING 100 MG/DL (70-100); POTASSIUM SERUM 4.3 MEQ/L (3.5-5.1); SODIUM LEVEL 135 MEQ/L (136-145); TOTAL PROTEIN 7.2 GM/DL (6.4-8.2)
[2018-01-06 13:47] LABS: ERYTHROCYTE SEDIMENTATION RATE 39 mm/hr (0-30)
[2018-01-06 14:03] LABS: ESTIMATED AVERAGE GLUCOSE 114 MG/DL (60-110); HEMOGLOBIN A1c 5.6 %
[2018-01-06 14:11] LABS: HEPATITIS C VIRUS ABY INDEX 0.1 INDEX (<0.8)
== END ==
LOC: M SMT 08:35
DX: E61.1 Iron deficiency (principal); M15.9 Polyosteoarthritis, unspecified; Z11.59 Encounter for screening for other viral diseases; R73.01 Impaired fasting glucose
CPT/HCPCS: 80053

== ENCOUNTER → 2018-07-24 | Outpatient (REF) | payer MEDICARE ==
[~2018-07-24] MED LIST changes: +MELO15TA28 PO; -MELO15TA4 PO
[2018-07-24 13:47] LABS: HEMATOCRIT 38.7 % (36.0-47.0); HEMOGLOBIN 12.6 g/dl (12.0-15.5); MEAN CORPUSCULAR HEMOGLOBIN 27.1 pg (27.0-33.0); MEAN CORPUSCULAR HGB CONC 32.6 g/dl (32.0-36.5); MEAN CORPUSCULAR VOLUME 83.2 fl (80.0-96.0); PLATELET COUNT, AUTOMATED 306 10^3/uL (150-450); RED BLOOD COUNT 4.65 10^6/uL (4.00-5.40); WHITE BLOOD COUNT 5.1 10^3/uL (4.0-10.0)
[2018-07-24 14:10] LABS: ALBUMIN 4.3 GM/DL (3.2-5.2); ALT/SGPT 17 U/L (12-78); BILIRUBIN,TOTAL 0.9 MG/DL (0.2-1.0); BLOOD UREA NITROGEN 16 MG/DL (7-18); CALCIUM LEVEL 9.5 MG/DL (8.8-10.2); CARBON DIOXIDE LEVEL 30 MEQ/L (21-32); CHLORIDE LEVEL 96 MEQ/L (98-107); CREATININE FOR GFR 0.64 MG/DL (0.55-1.30); GLOMERULAR FILTRATION RATE > 60.0 (>39); GLUCOSE, FASTING 101 MG/DL (70-100); SODIUM LEVEL 133 MEQ/L (136-145)
[2018-07-24 14:16] LABS: ERYTHROCYTE SEDIMENTATION RATE 33 mm/hr (0-30)
[2018-07-24 14:18] LABS: TOTAL 25(OH) VITAMIN D 56.9 NG/ML (30.0-100.0)
== END ==
LOC: M SFHCPLAZ 10:07
PROVIDERS: ATTEND Nurse Practitioner Family
DX: R60.0 Localized edema (principal); E61.1 Iron deficiency; E55.9 Vitamin D deficiency, unspecified; M15.9 Polyosteoarthritis, unspecified
CPT/HCPCS: 36415; 80053; 82306; 85027; 85652; G0463

== ENCOUNTER → 2018-08-14 | Outpatient (REF) | payer MEDICARE ==
[2018-08-14 15:47] LABS: BLOOD UREA NITROGEN 16 MG/DL (7-18); CALCIUM LEVEL 8.9 MG/DL (8.8-10.2); CARBON DIOXIDE LEVEL 30 MEQ/L (21-32); CHLORIDE LEVEL 99 MEQ/L (98-107); CREATININE FOR GFR 0.56 MG/DL (0.55-1.30); GLOMERULAR FILTRATION RATE > 60.0 (>39); GLUCOSE, FASTING 96 MG/DL (70-100); SODIUM LEVEL 136 MEQ/L (136-145)
[2018-08-14 15:56] LABS: INR 1.01
== END ==
LOC: M SFHCPLAZ 14:12
PROVIDERS: ATTEND Family Medicine
DX: Z01.818 Encounter for other preprocedural examination (principal); I35.8 Other nonrheumatic aortic valve disorders
CPT/HCPCS: 36415; 80048; 85610; G0463

== ENCOUNTER → 2018-12-19 | Outpatient (CLI) | payer MEDICARE ==
[~2018-12-19] MED LIST changes: -OMEP40CA2 PO; +OMEP40CA97 PO
--- NOTE | 2018-12-19 12:02 | REPMRS ---
Patient History The patient states she had a clinical breast exam in 12/2018. Patient is postmenopausal. No known family history of cancer. No Hormone Replacement Therapy 3D TOMOSYNTHESIS WAS PERFORMED. [facility] lifetime risk for breast cancer is 3.4%. Digital Woman Screen Mammo: December 19, 2018 - Exam #: [id number] Bilateral CC and MLO view(s) were taken. Technologist: Lakia Fletcher, Technologist Prior study comparison: January 02, 2018, bilateral digital woman screen mammo performed at [facility]. January 02, 2017, digital woman screen mammo performed at [facility] [employer]. FINDINGS: There are scattered fibroglandular densities. There has been no change in the appearance of the mammogram from the prior studies. There is a mild amount of residual fibroglandular tissue which is fairly symmetric. There is no interval development of dominant mass, architectural distortion, or clustered microcalcification suggestive of malignancy. Assessment: BI-RADS/ACR category 1 mammogram. Negative Mammogram. Recommendation Routine screening mammogram in 1 year (for women over age 40). This mammogram was interpreted with the aid of an FDA-approved computer-aided dectection system. Electronically Signed By: Andre Winn MD 12/19/18 [id number]
== END ==
LOC: M WHC 11:01
PROVIDERS: ATTEND Nurse Practitioner Family
DX: Z12.31 Encounter for screening mammogram for malignant neoplasm of breast (principal); Z78.0 Asymptomatic menopausal state
CPT/HCPCS: 77063; 77067; G0463

== ENCOUNTER → 2019-01-12 | Outpatient (REF) | payer MEDICARE ==
[2019-01-12 11:45] LABS: BASO % 0.4 % (0.0-1.0); EOS # 0.2 10^3/uL (0.0-0.5); EOS % 3.6 % (0.0-3.0); HEMATOCRIT 39.7 % (36.0-47.0); HEMOGLOBIN 12.2 g/dl (12.0-15.5); LYMPH # 0.9 10^3/uL (1.5-5.0); LYMPH % 19.3 % (24.0-44.0); MEAN CORPUSCULAR HEMOGLOBIN 26.9 pg (27.0-33.0); MEAN CORPUSCULAR HGB CONC 30.7 g/dl (32.0-36.5); MEAN CORPUSCULAR VOLUME 87.4 fl (80.0-96.0); MONO # 0.7 10^3/uL (0.0-0.8); MONO % 14.3 % (0.0-5.0); NEUTROPHILS # 2.9 10^3/uL (1.5-8.5); NEUTROPHILS % 62.2 % (36.0-66.0); PLATELET COUNT, AUTOMATED 266 10^3/uL (150-450); RED BLOOD COUNT 4.54 10^6/uL (4.00-5.40); WHITE BLOOD COUNT 4.7 10^3/uL (4.0-10.0)
[2019-01-12 12:07] LABS: ALBUMIN 3.9 GM/DL (3.2-5.2); ALT/SGPT 19 U/L (12-78); BILIRUBIN,TOTAL 0.4 MG/DL (0.2-1.0); BLOOD UREA NITROGEN 7 MG/DL (7-18); C REACTIVE PROTEIN QUANTITATIV 0.68 MG/DL (0.00-0.30); CALCIUM LEVEL 9.1 MG/DL (8.8-10.2); CARBON DIOXIDE LEVEL 30 MEQ/L (21-32); CHLORIDE LEVEL 103 MEQ/L (98-107); CREATININE FOR GFR 0.59 MG/DL (0.55-1.30); GLOMERULAR FILTRATION RATE > 60.0 (>39); GLUCOSE, FASTING 89 MG/DL (70-100); POTASSIUM SERUM 4.2 MEQ/L (3.5-5.1); SODIUM LEVEL 138 MEQ/L (136-145); TOTAL PROTEIN 7.4 GM/DL (6.4-8.2)
[2019-01-12 12:33] LABS: ERYTHROCYTE SEDIMENTATION RATE 28 mm/hr (0-30)
== END ==
LOC: M SFHCPLAZ 09:24
PROVIDERS: ATTEND Nurse Practitioner Family
DX: J01.00 Acute maxillary sinusitis, unspecified (principal)
CPT/HCPCS: 36415; 80053; 85025; 85652; 86140; G0463

== ENCOUNTER → 2019-04-23 | Outpatient (CLI) | payer MEDICARE ==
--- NOTE | 2019-04-23 10:56 | REP ---
Duplex extremity venous ultrasound: Bilateral lower extremities. History: Bilateral lower extremity edema, rule out DVT. Findings: The deep veins are anechoic and fully compressible from the groin to the popliteal fossa in the left and right lower extremity. Color flow imaging is homogeneous. Spectral Doppler interrogation demonstrates intact respiratory variation in flow and normal manual augmentation of flow. There is no evidence of deep vein thrombosis. Scanning is performed in the area of redness and tenderness in the lateral aspect of each calf. Edematous soft tissue changes are seen in the area varicose veins. No evidence of a venous thrombosis seen. Impression: Negative bilateral lower extremity duplex venous ultrasound. No evidence of deep vein thrombosis. Electronically Signed by Serge Guadalupe MD 04/23/2019 10:47 A
== END ==
LOC: M WHC 09:54
PROVIDERS: ATTEND Nurse Practitioner Family
DX: R60.0 Localized edema (principal)
CPT/HCPCS: 93970; G0463

== ENCOUNTER → 2019-04-28 | Outpatient (POV) | payer MEDICARE ==
[~2019-04-28] VITALS: Ht 152.4 cm; Wt 108.6 kg
[2019-04-28 11:55] VITALS: BP 129/55
--- NOTE | 2019-04-29 16:54 | IRCOV ---
[facility] IR Consult Office Visit IR Consult Office Visit DATE: Apr 28, 2019 REASON FOR CONSULTATION/CHIEF COMPLAINT: Leg swelling. HISTORY OF PRESENT ILLNESS: 73-year-old female complaining of several years of intermittent bilateral leg swelling, sometimes they become red and hot and focally tender for several days. This goes away by itself. 2 weeks ago she had right leg swelling which decreased overnight. Ultrasound was performed which was negative for deep vein thrombosis. She describes dry itchy skin and feeling of burning under the skin. She has skin peeling and itchy sensation over the left medial ankle. No prior ulcers. She's noticed bulging varicose veins. She does wear compression stockings and gets redness at the calf associated with the stockings. She has a family history of varicose veins. No prior vein evaluation or surgery. No intermittent claudication or rest pain. No prior history of deep vein thrombosis. ALLERGIES: Please see below. HOME MEDICATIONS: Please see below. PAST MEDICAL HISTORY: Esophageal reflux Allergies Anemia of chronic disease Polymyalgia rheumatica Asthma Sleep apnea Glaucoma Depression Aortic stenosis Hemorrhoids Osteopenia Vitamin D deficiency Trigeminal neuralgia PAST SURGICAL HISTORY: Thyroidectomy 1950 Appendectomy D&C Carpal tunnel release Bunionectomy Hammertoe Alvarez's cyst removal Cataract surgery Right total knee replacement Left total knee replacement Left knee abscess I&D Left shoulder replacement FAMILY HISTORY: Family history of varicose veins SOCIAL HISTORY: Ex-smoker. Denies alcohol or drugs. REVIEW OF SYSTEMS: Otherwise negative PHYSICAL EXAMINATION: VITAL SIGNS: Please see below. GENERAL APPEARANCE: Appears well. Comfortable at rest. HEENT: No scleral icterus. RESPIRATORY: Normal breathing at rest. CARDIOVASCULAR: Normal rate. Heart murmur. ABDOMEN: Soft nontender. EXTREMITIES: Right lower extremity: Below-knee skin dry and tight. No calf swelling. Redness below the knee on the chicas. No edema. Motor 5 out of 5. Warm to touch. No hemosiderin deposition. Bulging varicose veins are noted. Left lower extremity: Below-knee skin dry and tight. No calf swelling. Redness below the knee on the chicas. No edema. Motor 5 out of 5. Warm to touch. No hemosiderin deposition. Bulging varicose veins are noted. NEUROLOGICAL: Alert and oriented. PSYCHIATRIC: Appropriate to circumstance. LABORATORY DATA: 01/12/2019 hemoglobin 12.2 hematocrit 39.7 WBC 4.7 platelets 266 sodium 138 potassium 4.2 BUN 7 creatinine 0.59 Imaging: I personally reviewed the ultrasound of the deep venous structures performed in April 2019. There is no deep vein thrombosis. The superficial venous system was not examined. ASSESSMENT/PLAN: 73-year-old female with bilateral lower extremity swelling, pain, varicose eczema presents for varicose vein evaluation. I've ordered bilateral lower extremity venous reflux study to evaluate for venous insufficiency. If this study is positive we will bring the patient back for EVLT therapy. I spent 30 minutes in consultation with the patient. Thank you for this referral. Cc Gabrielle Vasquez Allergies Coded Allergies: No Known Allergies (Verified , 12/31/03) Home Medications Scheduled Biotin (Biotin), 1 TAB OR DAILY, (Reported) Carbamazepine (Tegretol), 100 MG PO TID, (Reported) Fluticasone Propion/Salmeterol (Advair Hfa 115-21 Mcg Inhaler), 2 PUFF INH BID, (Reported) Furosemide (Furosemide), 40 MG PO BID, (Reported) Omeprazole (Omeprazole), 40 MG PO DAILY, (Reported) Prednisone (Prednisone), 3 MG PO DAILY, (Reported) Warfarin Sodium (Coumadin), 1 TAB PO ASDIRECTED [calcium], 600 TAB OR BID, (Reported) [fish oil], 1,200 MG OR DAILY, (Reported) [iron], 1 TAB OR BID, (Reported) [magnesium], 1 TAB OR DAILY, (Reported) [proventil inh], PRN, (Reported) [systane], 1 DROP OU QID, (Reported) [vitamin D], 5,000 UNITS OR DAILY, (Reported) Scheduled PRN Acetaminophen (Tylenol Extra Strength), 500 MG PO for PRN, (Reported) Oxycodone HCl/Acetaminophen (Percocet 5-325 mg Tablet), 1-2 TAB PO Q4H PRN for PAIN VS, I&O, 24H, Fishbone Vital Signs/I&O Vital Signs Date Time Temp Pulse Resp B/P (MAP) Pulse Ox O2 Delivery O2 Flow Rate FiO2 04/28/19 11:55 97.7 71 18 129/55 (79) 96 Room Air GERSON TREVINO MD Apr 29, 2019 16:54
== END ==
LOC: M IRPOV 11:21
PROVIDERS: ATTEND Radiology Diagnostic Radiology
DX: I83.11 Varicose veins of right lower extremity with inflammation (principal); I83.12 Varicose veins of left lower extremity with inflammation; R60.0 Localized edema; K21.9 Gastro-esophageal reflux disease without esophagitis; M35.3 Polymyalgia rheumatica; J45.909 Unspecified asthma, uncomplicated; G47.30 Sleep apnea, unspecified; H40.9 Unspecified glaucoma; I35.0 Nonrheumatic aortic (valve) stenosis; Z96.1 Presence of intraocular lens; Z96.653 Presence of artificial knee joint, bilateral; Z96.612 Presence of left artificial shoulder joint

== ENCOUNTER → 2019-05-07 | Outpatient (CLI) | payer MEDICARE ==
--- NOTE | 2019-05-07 20:43 | REP ---
Clinical: Lower extremity varicosities. Technique: Real time michael scale and color Doppler evaluation using linear high frequency transducer including reflux evaluation. Findings: The bilateral lower extremities demonstrate normal deep venous structures from the common femoral vein to the popliteal vein without evidence for deep venous thrombosis. Complex left Alvarez's cyst in the popliteal fossa measures 4.5 x 1.1 x 1.6 cm. Reflux evaluation was performed and no reflux through the deep or superficial systems noted bilaterally. Impression: 1. No evidence for deep venous thrombosis. 2. No evidence for reflux disease. 3. Complex Alvarez's cyst in the left popliteal fossa. Electronically Signed by Ben Broussard MD 05/07/2019 08:34 P
== END ==
LOC: M RAD 09:02
PROVIDERS: ATTEND Radiology Diagnostic Radiology
DX: I83.813 Varicose veins of bilateral lower extremities with pain (principal)

== ENCOUNTER → 2019-06-25 | Outpatient (REF) | payer MEDICARE ==
[2019-06-25 12:33] LABS: ALBUMIN 3.8 GM/DL (3.2-5.2); ALT/SGPT 19 U/L (12-78); BLOOD UREA NITROGEN 23 MG/DL (7-18); CALCIUM LEVEL 9.2 MG/DL (8.8-10.2); CARBON DIOXIDE LEVEL 29 MEQ/L (21-32); CHLORIDE LEVEL 103 MEQ/L (98-107); CREATININE FOR GFR 0.64 MG/DL (0.55-1.30); FERRITIN 92 NG/ML (8-252); GLOMERULAR FILTRATION RATE > 60.0 (>39); GLUCOSE, FASTING 106 MG/DL (70-100); POTASSIUM SERUM 4.5 MEQ/L (3.5-5.1); SODIUM LEVEL 138 MEQ/L (136-145); TOTAL PROTEIN 7.3 GM/DL (6.4-8.2)
== END ==
LOC: M PLALAB 08:07
PROVIDERS: ATTEND Nurse Practitioner Family
DX: R60.0 Localized edema (principal); E61.1 Iron deficiency

== ENCOUNTER → 2019-12-23 | Outpatient (CLI) | payer MEDICARE ==
--- NOTE | 2019-12-23 14:50 | REPMRS ---
Patient History The patient states she had a clinical breast exam in 2019. No known family history of cancer. No Hormone Replacement Therapy 3D TOMOSYNTHESIS WAS PERFORMED. The [facility] lifetime risk for breast cancer is 3.2%. Volpara breast density b. Digital Woman Screen Mammo: December 23, 2019 - Exam #: [id number] Bilateral CC and MLO view(s) were taken. Technologist: Brook Weir, Technologist Prior study comparison: December 19, 2018, bilateral digital woman screen mammo performed at [facility]. January 02, 2018, bilateral digital woman screen mammo performed at [facility]. FINDINGS: There are scattered fibroglandular densities. There has been no change in the appearance of the mammogram from the prior studies. There is a mild amount of residual fibroglandular tissue which is fairly symmetric. There is no interval development of dominant mass, architectural distortion, or clustered microcalcification suggestive of malignancy. Assessment: BI-RADS/ACR category 1 mammogram. Negative Mammogram. Recommendation Routine screening mammogram in 1 year (for women over age 40). This mammogram was interpreted with the aid of an FDA-approved computer-aided dectection system. Electronically Signed By: Andre Winn MD 12/23/19 [id number]
== END ==
LOC: M WHC 13:21
PROVIDERS: ATTEND Nurse Practitioner Family
DX: Z12.31 Encounter for screening mammogram for malignant neoplasm of breast (principal)
CPT/HCPCS: 77063; 77067; G0463

== ENCOUNTER → 2019-12-24 | Outpatient (CLI) | payer MEDICARE ==
--- NOTE | 2019-12-24 14:06 | REPPI ---
INDICATION: S69.91XA INJURY OF RIGHT HAND, INITIAL ENCOUNTER. COMPARISON: None. TECHNIQUE: Four views FINDINGS: The 5th metacarpal shows an oblique distal metaphyseal fracture with apex dorsal angulation. There is prominent soft tissue swelling over the dorsal aspect of the hand. There are advanced degenerative changes at the 1st CMC joint a few other lucencies and carpal bones suggesting bone cysts or erosions the MCP joints with minimal degenerative changes in IP joints show slight narrowing with some spurs on some of the DIP joints. No other fractures. There are small lucencies at the proximal phalanx of the 5th digit suggesting erosive arthritis there as well. IMPRESSION: 1. Distal 5th metacarpal metaphyseal fracture with dorsal apex angulation of the fracture. 2. 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 Degenerative changes at the 1st CMC joint, multiple carpal joints and IP joints, some of these are erosive with periarticular lucencies. <Electronically signed by Buster Torres > 12/24/19 [id number]
== END ==
LOC: M PLAIMG 13:41
PROVIDERS: ATTEND Family Medicine
DX: S62.326A Displaced fracture of shaft of fifth metacarpal bone, right hand, initial encounter for closed fracture (principal); X19.XXXA Contact with other heat and hot substances, initial encounter; Y92.9 Unspecified place or not applicable; M19.041 Primary osteoarthritis, right hand
CPT/HCPCS: 73130; G0463

== ENCOUNTER → 2020-01-12 | Outpatient (CLI) | payer MEDICARE ==
[2020-01-12 11:01] LABS: ALBUMIN 3.5 GM/DL (3.2-5.2); ALT/SGPT 16 U/L (12-78); BILIRUBIN,TOTAL 0.9 MG/DL (0.2-1.0); BLOOD UREA NITROGEN 16 MG/DL (7-18); CALCIUM LEVEL 8.9 MG/DL (8.8-10.2); CARBON DIOXIDE LEVEL 30 MEQ/L (21-32); CHLORIDE LEVEL 98 MEQ/L (98-107); CREATININE FOR GFR 0.69 MG/DL (0.55-1.30); GLOMERULAR FILTRATION RATE > 60.0 (>39); GLUCOSE, FASTING 99 MG/DL (70-100); POTASSIUM SERUM 4.4 MEQ/L (3.5-5.1); SODIUM LEVEL 134 MEQ/L (136-145); TOTAL PROTEIN 6.9 GM/DL (6.4-8.2)
== END ==
LOC: M PLALAB 08:16
PROVIDERS: ATTEND Nurse Practitioner Family
DX: K21.9 Gastro-esophageal reflux disease without esophagitis (principal); R60.0 Localized edema

== ENCOUNTER → 2020-07-29 | Outpatient (REF) | payer MEDICARE ==
[2020-07-29 11:31] LABS: HEMOGLOBIN 12.3 g/dl (12.0-15.5); MEAN CORPUSCULAR HEMOGLOBIN 26.9 pg (27.0-33.0); MEAN CORPUSCULAR HGB CONC 30.8 g/dl (32.0-36.5); MEAN CORPUSCULAR VOLUME 87.5 fl (80.0-96.0); PLATELET COUNT, AUTOMATED 229 10^3/uL (150-450); RED BLOOD COUNT 4.57 10^6/uL (4.00-5.40); WHITE BLOOD COUNT 4.3 10^3/uL (4.0-10.0)
[2020-07-29 13:31] LABS: ALT/SGPT 20 U/L (12-78); BILIRUBIN,TOTAL 1.2 MG/DL (0.2-1.0); BLOOD UREA NITROGEN 18 MG/DL (7-18); CALCIUM LEVEL 9.2 MG/DL (8.8-10.2); CARBON DIOXIDE LEVEL 30 MEQ/L (21-32); CHLORIDE LEVEL 103 MEQ/L (98-107); CHOLESTEROL LEVEL 198 MG/DL (<200); CHOLESTEROL RISK RATIO 3.093 (<5); FERRITIN 56 NG/ML (8-252); GLOMERULAR FILTRATION RATE > 60.0 (>39); GLUCOSE, FASTING 89 MG/DL (70-100); HDL CHOLESTEROL 64 MG/DL (>40); LDL CHOLESTEROL 121 MG/DL (<100); NON-HDL-C 134 MG/DL; POTASSIUM SERUM 4.3 MEQ/L (3.5-5.1); SODIUM LEVEL 139 MEQ/L (136-145); TOTAL PROTEIN 7.6 GM/DL (6.4-8.2); TRIGLYCERIDES LEVEL 65 MG/DL (<150)
[2020-07-29 13:36] LABS: TOTAL 25(OH) VITAMIN D 48.7 NG/ML (30.0-100.0)
== END ==
LOC: M PLALAB 08:28
PROVIDERS: ATTEND Nurse Practitioner Family
DX: E61.1 Iron deficiency (principal); R60.0 Localized edema; I35.8 Other nonrheumatic aortic valve disorders; E55.9 Vitamin D deficiency, unspecified; Z79.899 Other long term (current) drug therapy

== ENCOUNTER → 2020-10-04 | Outpatient (CLI) | payer MEDICARE ==
[~2020-10-04] MED LIST changes: +OMEP40CA4 PO; -OMEP40CA97 PO
[2020-10-04 12:47] LABS: HEMATOCRIT 33.8 % (36.0-47.0); MEAN CORPUSCULAR HEMOGLOBIN 27.7 pg (27.0-33.0); MEAN CORPUSCULAR HGB CONC 32.5 g/dl (32.0-36.5); MEAN CORPUSCULAR VOLUME 85.1 fl (80.0-96.0); PLATELET COUNT, AUTOMATED 225 10^3/uL (150-450); RED BLOOD COUNT 3.97 10^6/uL (4.00-5.40); WHITE BLOOD COUNT 5.1 10^3/uL (4.0-10.0)
[2020-10-04 13:22] LABS: BLOOD UREA NITROGEN 17 MG/DL (7-18); CALCIUM LEVEL 8.9 MG/DL (8.8-10.2); CARBON DIOXIDE LEVEL 30 MEQ/L (21-32); CHLORIDE LEVEL 95 MEQ/L (98-107); CREATININE FOR GFR 0.63 MG/DL (0.55-1.30); FREE T4 0.99 NG/DL (0.76-1.46); GLOMERULAR FILTRATION RATE > 60.0 (>39); GLUCOSE, FASTING 109 MG/DL (70-100); POTASSIUM SERUM 4.2 MEQ/L (3.5-5.1); SODIUM LEVEL 131 MEQ/L (136-145)
== END ==
LOC: M PLALAB 10:26
PROVIDERS: ATTEND Nurse Practitioner Family
DX: I48.91 Unspecified atrial fibrillation (principal)
CPT/HCPCS: 36415; 80048; 84439; 84443; 85027; 93005; G0463

== ENCOUNTER → 2020-10-21 | Outpatient (CLI) | payer MEDICARE | LOC: M LABSMTC 09:19 | PROVIDERS: ATTEND Internal Medicine Cardiovascular Disease | DX: Z20.822 Contact with and (suspected) exposure to COVID-19 (principal) ==

== ENCOUNTER → 2020-12-06 | Outpatient (CLI) | payer MEDICARE ==
[2020-12-06 17:48] LABS: BLOOD UREA NITROGEN 11 MG/DL (7-18); CARBON DIOXIDE LEVEL 32 MEQ/L (21-32); CHLORIDE LEVEL 91 MEQ/L (98-107); CREATININE FOR GFR 0.92 MG/DL (0.55-1.30); GLOMERULAR FILTRATION RATE > 60.0 (>39); GLUCOSE, FASTING 102 MG/DL (70-100); POTASSIUM SERUM 4.2 MEQ/L (3.5-5.1); SODIUM LEVEL 129 MEQ/L (136-145)
== END ==
LOC: M PLALAB 15:45
PROVIDERS: ATTEND Family Medicine
DX: E87.1 Hypo-osmolality and hyponatremia (principal)

== ENCOUNTER → 2020-12-22 | Outpatient (CLI) | payer MEDICARE ==
[2020-12-22 10:38] LABS: HEMATOCRIT 40.1 % (36.0-47.0); HEMOGLOBIN 12.5 g/dl (12.0-15.5); MEAN CORPUSCULAR HGB CONC 31.2 g/dl (32.0-36.5); MEAN CORPUSCULAR VOLUME 83.4 fl (80.0-96.0); PLATELET COUNT, AUTOMATED 297 10^3/uL (150-450); RED BLOOD COUNT 4.81 10^6/uL (4.00-5.40); WHITE BLOOD COUNT 8.5 10^3/uL (4.0-10.0)
[2020-12-22 11:11] LABS: PERCENT SATURATION 24.4 % (13.2-45.0)
== END ==
LOC: M PLALAB 07:54
PROVIDERS: ATTEND Family Medicine
DX: E61.1 Iron deficiency (principal)

== ENCOUNTER → 2021-03-03 | Outpatient (CLI) | payer MEDICARE | LOC: M LABSMTC 12:09 | PROVIDERS: ATTEND Internal Medicine Cardiovascular Disease | DX: Z01.812 Encounter for preprocedural laboratory examination (principal); Z20.822 Contact with and (suspected) exposure to COVID-19 ==

== ENCOUNTER → 2021-05-25 | Outpatient (CLI) | payer MEDICARE ==
[2021-05-25 11:14] LABS: HEMATOCRIT 38.8 % (36.0-47.0); HEMOGLOBIN 12.5 g/dl (12.0-15.5); MEAN CORPUSCULAR HEMOGLOBIN 27.4 pg (27.0-33.0); MEAN CORPUSCULAR HGB CONC 32.2 g/dl (32.0-36.5); MEAN CORPUSCULAR VOLUME 85.1 fl (80.0-96.0); PLATELET COUNT, AUTOMATED 269 10^3/uL (150-450); RED BLOOD COUNT 4.56 10^6/uL (4.00-5.40); WHITE BLOOD COUNT 5.3 10^3/uL (4.0-10.0)
[2021-05-25 12:04] LABS: BLOOD UREA NITROGEN 20 MG/DL (7-18); CALCIUM LEVEL 9.7 MG/DL (8.8-10.2); CARBON DIOXIDE LEVEL 35 MEQ/L (21-32); CHLORIDE LEVEL 94 MEQ/L (98-107); CREATININE FOR GFR 0.89 MG/DL (0.55-1.30); FERRITIN 75 NG/ML (8-252); GLOMERULAR FILTRATION RATE > 60.0 (>39); GLUCOSE, FASTING 108 MG/DL (70-100); IRON (FE) 80 UG/DL (50-170); NT-PRO BNP 824 PG/ML (<125); PERCENT SATURATION 23.7 % (13.2-45.0); POTASSIUM SERUM 4.9 MEQ/L (3.5-5.1); SODIUM LEVEL 134 MEQ/L (136-145); TOTAL IRON BINDING CAPACITY 338 UG/DL (250-450)
== END ==
LOC: M PLALAB 08:43
DX: E61.1 Iron deficiency (principal)

== ENCOUNTER → 2021-06-14 | Outpatient (CLI) | payer MEDICARE ==
[2021-06-14 10:18] LABS: HEMATOCRIT 40.9 % (36.0-47.0); MEAN CORPUSCULAR HEMOGLOBIN 27.5 pg (27.0-33.0); MEAN CORPUSCULAR HGB CONC 31.8 g/dl (32.0-36.5); MEAN CORPUSCULAR VOLUME 86.5 fl (80.0-96.0); PLATELET COUNT, AUTOMATED 262 10^3/uL (150-450); RED BLOOD COUNT 4.73 10^6/uL (4.00-5.40); WHITE BLOOD COUNT 5.1 10^3/uL (4.0-10.0)
[2021-06-14 10:41] LABS: BLOOD UREA NITROGEN 25 MG/DL (7-18); CALCIUM LEVEL 10.2 MG/DL (8.8-10.2); CARBON DIOXIDE LEVEL 34 MEQ/L (21-32); CHLORIDE LEVEL 97 MEQ/L (98-107); CREATININE FOR GFR 0.76 MG/DL (0.55-1.30); FERRITIN 79 NG/ML (8-252); GLOMERULAR FILTRATION RATE > 60.0 (>39); GLUCOSE, FASTING 94 MG/DL (70-100); IRON (FE) 80 UG/DL (50-170); NT-PRO BNP 895 PG/ML (<450); PERCENT SATURATION 23.1 % (13.2-45.0); POTASSIUM SERUM 4.3 MEQ/L (3.5-5.1); SODIUM LEVEL 135 MEQ/L (136-145); TOTAL IRON BINDING CAPACITY 347 UG/DL (250-450)
== END ==
LOC: M PLALAB 08:47
DX: I50.32 Chronic diastolic (congestive) heart failure (principal); Z79.01 Long term (current) use of anticoagulants

== ENCOUNTER → 2021-08-01 | Outpatient (CLI) | payer MEDICARE ==
[~2021-08-01] MED LIST changes: +ACET500P3 PO; +AMLO1TAB24 PO; +IRON65TA2 PO; +NORT10CA2 PO; +OXCA150T21 PO; +SPIR-10 PO; +TORS20TA2 PO; +VIT1TABL22 PO; +XARE20TA PO
[2021-08-01 18:01] LABS: HEMATOCRIT 39.1 % (36.0-47.0); HEMOGLOBIN 12.6 g/dl (12.0-15.5); MEAN CORPUSCULAR HEMOGLOBIN 27.6 pg (27.0-33.0); MEAN CORPUSCULAR HGB CONC 32.2 g/dl (32.0-36.5); MEAN CORPUSCULAR VOLUME 85.6 fl (80.0-96.0); PLATELET COUNT, AUTOMATED 276 10^3/uL (150-450); RED BLOOD COUNT 4.57 10^6/uL (4.00-5.40); WHITE BLOOD COUNT 6.6 10^3/uL (4.0-10.0)
[2021-08-01 18:22] LABS: CALCIUM LEVEL 9.8 MG/DL (8.8-10.2); CREATININE FOR GFR 0.98 MG/DL (0.55-1.30); GLOMERULAR FILTRATION RATE 58.9 (>39); POTASSIUM SERUM 5.3 MEQ/L (3.5-5.1)
== END ==
LOC: M PLALAB 15:38
PROVIDERS: ATTEND Internal Medicine Critical Care Medicine
DX: I50.32 Chronic diastolic (congestive) heart failure (principal)

== ENCOUNTER → 2021-08-10 | Outpatient (CLI) | payer MEDICARE ==
[2021-08-10 11:04] LABS: BLOOD UREA NITROGEN 22 MG/DL (7-18); CALCIUM LEVEL 9.6 MG/DL (8.8-10.2); CARBON DIOXIDE LEVEL 32 MEQ/L (21-32); CHLORIDE LEVEL 94 MEQ/L (98-107); GLOMERULAR FILTRATION RATE > 60.0 (>39); GLUCOSE, FASTING 99 MG/DL (70-100); POTASSIUM SERUM 3.9 MEQ/L (3.5-5.1); SODIUM LEVEL 132 MEQ/L (136-145)
== END ==
LOC: M PLALAB 08:54
PROVIDERS: ATTEND Internal Medicine Critical Care Medicine
DX: I50.32 Chronic diastolic (congestive) heart failure (principal)

== ENCOUNTER → 2021-10-27 | Outpatient (CLI) | payer MEDICARE ==
[~2021-10-27] MED LIST changes: +NORT50CA
== END ==
LOC: M WHC 08:23
PROVIDERS: ATTEND Physician Assistant
DX: Z12.31 Encounter for screening mammogram for malignant neoplasm of breast (principal); Z78.0 Asymptomatic menopausal state; Z13.820 Encounter for screening for osteoporosis; M85.88 Other specified disorders of bone density and structure, other site; M85.851 Other specified disorders of bone density and structure, right thigh; M85.852 Other specified disorders of bone density and structure, left thigh

== ENCOUNTER → 2021-11-07 | Outpatient (CLI) | payer MEDICARE | LOC: M PLALAB 10:46 | PROVIDERS: ATTEND Physician Assistant | DX: M35.3 Polymyalgia rheumatica (principal) ==

== ENCOUNTER → 2022-01-10 | Outpatient (CLI) | payer MEDICARE ==
[2022-01-10 15:25] LABS: BASO % 0.6 % (0.0-1.0); EOS # 0.1 10^3/uL (0.0-0.5); EOS % 1.7 % (0.0-3.0); HEMATOCRIT 39.1 % (36.0-47.0); HEMOGLOBIN 12.5 g/dl (12.0-15.5); LYMPH # 1.2 10^3/uL (1.5-5.0); LYMPH % 17.5 % (24.0-44.0); MEAN CORPUSCULAR HEMOGLOBIN 28.7 pg (27.0-33.0); MEAN CORPUSCULAR VOLUME 89.7 fl (80.0-96.0); MONO # 0.7 10^3/uL (0.0-0.8); MONO % 10.9 % (2.0-8.0); NEUTROPHILS # 4.6 10^3/uL (1.5-8.5); PLATELET COUNT, AUTOMATED 293 10^3/uL (150-450); RED BLOOD COUNT 4.36 10^6/uL (4.00-5.40); WHITE BLOOD COUNT 6.6 10^3/uL (4.0-10.0)
[2022-01-10 16:29] LABS: ERYTHROCYTE SEDIMENTATION RATE 58 mm/hr (0-30)
[2022-01-10 18:04] LABS: ALBUMIN 3.9 G/DL (3.2-5.2); ALKALINE PHOSPHATASE 145 U/L (46-116); ALT/SGPT 14 U/L (7.0-40); AST/SGOT 24 U/L (<34); BILIRUBIN,TOTAL 0.5 MG/DL (0.3-1.2); BLOOD UREA NITROGEN 22 MG/DL (9-23); CALCIUM LEVEL 9.3 MG/DL (8.3-10.6); CARBON DIOXIDE LEVEL 32 MMOL/L (20-31); CHLORIDE LEVEL 95 MMOL/L (98-107); CREATININE FOR GFR 0.94 MG/DL (0.55-1.30); GLOMERULAR FILTRATION RATE > 60.0 (>39); GLUCOSE, FASTING 122 MG/DL (74-106); POTASSIUM SERUM 4.3 MMOL/L (3.5-5.1); SODIUM LEVEL 136 MMOL/L (136-145); TOTAL PROTEIN 7.4 G/DL (5.7-8.2)
== END ==
LOC: M PLALAB 14:28
PROVIDERS: ATTEND Physician Assistant
DX: M35.3 Polymyalgia rheumatica (principal)

== ENCOUNTER → 2022-05-16 | Outpatient (CLI) | payer MEDICARE ==
[~2022-05-16] MED LIST changes: +PRED1TABL
[2022-05-16 13:46] LABS: BASO % 0.6 % (0.0-1.0); EOS # 0.2 10^3/uL (0.0-0.5); EOS % 2.8 % (0.0-3.0); HEMATOCRIT 37.1 % (36.0-47.0); HEMOGLOBIN 11.5 g/dl (12.0-15.5); LYMPH # 0.8 10^3/uL (1.5-5.0); LYMPH % 12.3 % (24.0-44.0); MEAN CORPUSCULAR VOLUME 90.3 fl (80.0-96.0); MONO # 0.8 10^3/uL (0.0-0.8); MONO % 11.5 % (2.0-8.0); NEUTROPHILS # 4.8 10^3/uL (1.5-8.5); NEUTROPHILS % 72.4 % (36.0-66.0); PLATELET COUNT, AUTOMATED 292 10^3/uL (150-450); RED BLOOD COUNT 4.11 10^6/uL (4.00-5.40); WHITE BLOOD COUNT 6.7 10^3/uL (4.0-10.0)
[2022-05-16 14:03] LABS: ALBUMIN 3.9 G/DL (3.2-5.2); ALKALINE PHOSPHATASE 134 U/L (46-116); ALT/SGPT 13 U/L (7.0-40); AST/SGOT 11 U/L (<34); BILIRUBIN,TOTAL 0.5 MG/DL (0.3-1.2); BLOOD UREA NITROGEN 22 MG/DL (9-23); CALCIUM LEVEL 9.4 MG/DL (8.3-10.6); CARBON DIOXIDE LEVEL 35 MMOL/L (20-31); CHLORIDE LEVEL 95 MMOL/L (98-107); GLOMERULAR FILTRATION RATE > 60.0 (>39); GLUCOSE, FASTING 93 MG/DL (74-106); POTASSIUM SERUM 4.8 MMOL/L (3.5-5.1); SODIUM LEVEL 136 MMOL/L (136-145); TOTAL PROTEIN 7.1 G/DL (5.7-8.2)
== END ==
LOC: M PLALAB 11:03
PROVIDERS: ATTEND Psychiatry & Neurology Neurology
DX: G50.0 Trigeminal neuralgia (principal)

== ENCOUNTER 2022-06-01 20:23 | Emergency (ER) | payer MEDICARE ==
[~2022-06-01] VITALS: Ht 149.9 cm; Wt 87.5 kg
[2022-06-01] MEDS ORDERED: TRIA2LOT (20:38)
[2022-06-01] MEDS ORDERED: MONT10TA97 (20:38)
[2022-06-02 00:26] VITALS: BP 168/71
== END 2022-06-02 01:51 | disposition left against medical advice (07) ==
LOC: M ED 20:23
DX: Z53.21 Procedure and treatment not carried out due to patient leaving prior to being seen by health care provider (principal)

== ENCOUNTER 2022-06-21 05:02 | Emergency (ER) | payer MEDICARE ==
[~2022-06-21] VITALS: Ht 149.9 cm; Wt 85.0 kg
[~2022-06-21 05:02] MED LIST changes: +MONT10TA97; +TRIA2LOT
[2022-06-21] MEDS ORDERED: AMLO1TAB25 PO (05:16)
[2022-06-21 06:14] LABS: HEMATOCRIT 36.8 % (36.0-47.0); HEMOGLOBIN 11.8 g/dl (12.0-15.5); MEAN CORPUSCULAR HEMOGLOBIN 27.5 pg (27.0-33.0); MEAN CORPUSCULAR HGB CONC 32.1 g/dl (32.0-36.5); MEAN CORPUSCULAR VOLUME 85.8 fl (80.0-96.0); PLATELET COUNT, AUTOMATED 294 10^3/uL (150-450); RED BLOOD COUNT 4.29 10^6/uL (4.00-5.40); WHITE BLOOD COUNT 6.5 10^3/uL (4.0-10.0)
[2022-06-21 06:43] LABS: CALCIUM LEVEL 9.7 MG/DL (8.3-10.6); CREATININE FOR GFR 1.16 MG/DL (0.55-1.30); GLOMERULAR FILTRATION RATE 48.4 (>39); POTASSIUM SERUM 5.5 MMOL/L (3.5-5.1)
[2022-06-21] MEDS ORDERED: NS 1,000 ML IV ONE (06:50)
[2022-06-21 09:13] VITALS: BP 190/80
== END 2022-06-21 09:17 | disposition home or self-care (01) ==
LOC: M ED 05:02
DX: R55 Syncope and collapse (principal); W01.10XA Fall on same level from slipping, tripping and stumbling with subsequent striking against unspecified object, initial encounter; E86.0 Dehydration; I10 Essential (primary) hypertension; G47.33 Obstructive sleep apnea (adult) (pediatric); K21.9 Gastro-esophageal reflux disease without esophagitis; Z87.891 Personal history of nicotine dependence; Z95.0 Presence of cardiac pacemaker; Z79.01 Long term (current) use of anticoagulants; Z79.83 Long term (current) use of bisphosphonates; Z79.899 Other long term (current) drug therapy

== ENCOUNTER → 2022-07-30 | Outpatient (CLI) | payer MEDICARE ==
[~2022-07-30] MED LIST changes: +AMLO1TAB25 PO
[2022-07-30 14:31] LABS: CALCIUM LEVEL 9.1 MG/DL (8.3-10.6); CREATININE FOR GFR 1.53 MG/DL (0.55-1.30); GLOMERULAR FILTRATION RATE 35.1 (>39); POTASSIUM SERUM 5.3 MMOL/L (3.5-5.1)
== END ==
LOC: M PLALAB 10:36
PROVIDERS: ATTEND Physician Assistant
DX: I10 Essential (primary) hypertension (principal)

== ENCOUNTER → 2022-08-22 | Outpatient (CLI) | payer MEDICARE ==
[2022-08-22 14:41] LABS: CALCIUM LEVEL 9.6 MG/DL (8.3-10.6); CREATININE FOR GFR 1.75 MG/DL (0.55-1.30); GLOMERULAR FILTRATION RATE 30.1 (>39); POTASSIUM SERUM 4.8 MMOL/L (3.5-5.1)
== END ==
LOC: M PLALAB 12:02
PROVIDERS: ATTEND Physician Assistant
DX: I10 Essential (primary) hypertension (principal)

== ENCOUNTER → 2022-11-08 | Outpatient (CLI) | payer MEDICARE ==
[~2022-11-08] MED LIST changes: +PAME25CA PO; +XARE15TA PO
== END ==
LOC: M WHC 09:39
PROVIDERS: ATTEND Internal Medicine Nephrology
DX: N18.31 Chronic kidney disease, stage 3a (principal)

== ENCOUNTER → 2022-11-09 | Outpatient (CLI) | payer MEDICARE ==
[2022-11-09 10:44] LABS: BLOOD UREA NITROGEN 17 MG/DL (9-23); CALCIUM LEVEL 9.4 MG/DL (8.3-10.6); CARBON DIOXIDE LEVEL 36 MMOL/L (20-31); CHLORIDE LEVEL 98 MMOL/L (98-107); CREATININE FOR GFR 0.75 MG/DL (0.55-1.30); GLOMERULAR FILTRATION RATE > 60.0 (>39); GLUCOSE, FASTING 102 MG/DL (74-106); POTASSIUM SERUM 4.6 MMOL/L (3.5-5.1); SODIUM LEVEL 138 MMOL/L (136-145)
== END ==
LOC: M PLALAB 08:51
PROVIDERS: ATTEND Family Medicine
DX: M35.3 Polymyalgia rheumatica (principal); N18.9 Chronic kidney disease, unspecified

== ENCOUNTER 2023-04-03 08:47 | Day surgery (SDC) | payer MEDICARE ==
[~2023-04-03] VITALS: Ht 152.4 cm; Wt 87.1 kg
[~2023-04-03 08:47] MED LIST changes: +ALBU8.5H; +AZEL1SPR3; +MONT10TA97 PO; +NORT25CA2 PO; +OMEP-173 PO; +OXCA300T14 PO
[2023-04-03] MEDS: NS 1,000 ML IV ONE (09:36)
[2023-04-03 11:55] VITALS: BP 149/63; O2SAT 97
== END 2023-04-03 12:12 | disposition home or self-care (01) ==
LOC: M OPP 08:47
PROVIDERS: ATTEND Internal Medicine Gastroenterology
DX: Z12.11 Encounter for screening for malignant neoplasm of colon (principal); K64.0 First degree hemorrhoids; K57.30 Diverticulosis of large intestine without perforation or abscess without bleeding; K22.89 Other specified disease of esophagus; K29.70 Gastritis, unspecified, without bleeding; K44.9 Diaphragmatic hernia without obstruction or gangrene; I50.9 Heart failure, unspecified; I48.91 Unspecified atrial fibrillation; Z95.5 Presence of coronary angioplasty implant and graft; G47.30 Sleep apnea, unspecified; Z99.89 Dependence on other enabling machines and devices; Z79.51 Long term (current) use of inhaled steroids
CPT/HCPCS: 43239; 88305; G0121

== ENCOUNTER → 2023-06-19 | Outpatient (CLI) | payer MEDICARE ==
[2023-06-19 18:35] LABS: BLOOD UREA NITROGEN 35 MG/DL (9-23); CALCIUM LEVEL 9.2 MG/DL (8.3-10.6); CARBON DIOXIDE LEVEL 36 MMOL/L (20-31); CHLORIDE LEVEL 91 MMOL/L (98-107); CREATININE FOR GFR 0.84 MG/DL (0.55-1.30); GLOMERULAR FILTRATION RATE > 60.0 (>39); GLUCOSE, FASTING 112 MG/DL (74-106); POTASSIUM SERUM 4.2 MMOL/L (3.5-5.1); SODIUM LEVEL 133 MMOL/L (136-145)
== END ==
LOC: M PLALAB 15:14
PROVIDERS: ATTEND Physician Assistant
DX: I27.20 Pulmonary hypertension, unspecified (principal)

== ENCOUNTER → 2023-09-16 | Outpatient (CLI) | payer MEDICARE ==
[2023-09-16 16:31] LABS: BLOOD UREA NITROGEN 29 MG/DL (9-23); CALCIUM LEVEL 9.5 MG/DL (8.3-10.6); CARBON DIOXIDE LEVEL 36 MMOL/L (20-31); CHLORIDE LEVEL 90 MMOL/L (98-107); CREATININE FOR GFR 0.78 MG/DL (0.55-1.30); GLOMERULAR FILTRATION RATE > 60.0 (>39); GLUCOSE, FASTING 100 MG/DL (74-106); POTASSIUM SERUM 3.6 MMOL/L (3.5-5.1); SODIUM LEVEL 131 MMOL/L (136-145)
== END ==
LOC: M PLALAB 13:02
PROVIDERS: ATTEND Family Medicine
DX: Z00.00 Encounter for general adult medical examination without abnormal findings (principal)

== ENCOUNTER → 2023-10-23 | Outpatient (CLI) | payer MEDICARE | LOC: M WHC 12:53 | PROVIDERS: ATTEND Family Medicine | DX: Z12.31 Encounter for screening mammogram for malignant neoplasm of breast (principal); Z13.820 Encounter for screening for osteoporosis; M85.851 Other specified disorders of bone density and structure, right thigh; M85.852 Other specified disorders of bone density and structure, left thigh; M85.88 Other specified disorders of bone density and structure, other site ==

== ENCOUNTER → 2024-03-12 | Outpatient (CLI) | payer MEDICARE ==
[2024-03-12 15:26] LABS: HEMATOCRIT 38.1 % (36.0-47.0); HEMOGLOBIN 12.1 g/dl (12.0-15.5); MEAN CORPUSCULAR HEMOGLOBIN 27.6 pg (27.0-33.0); MEAN CORPUSCULAR HGB CONC 31.8 g/dl (32.0-36.5); PLATELET COUNT, AUTOMATED 229 10^3/uL (150-450); RED BLOOD COUNT 4.38 10^6/uL (4.00-5.40); WHITE BLOOD COUNT 5.5 10^3/uL (4.0-10.0)
[2024-03-12 16:04] LABS: ALBUMIN 4.3 G/DL (3.2-5.2); ALKALINE PHOSPHATASE 186 U/L (35-104); ALT/SGPT 24 U/L (7.0-40); AST/SGOT 29 U/L (<34); BILIRUBIN,TOTAL 0.6 MG/DL (0.3-1.2); BLOOD UREA NITROGEN 24 MG/DL (9-23); CALCIUM LEVEL 9.7 MG/DL (8.3-10.6); CARBON DIOXIDE LEVEL 34 MMOL/L (20-31); CHLORIDE LEVEL 97 MMOL/L (98-107); CHOLESTEROL LEVEL 211 MG/DL (<200); CHOLESTEROL RISK RATIO 3.23 (<5); CREATININE FOR GFR 0.88 MG/DL (0.55-1.30); GLOMERULAR FILTRATION RATE > 60.0 (>39); GLUCOSE, FASTING 102 MG/DL (74-106); HDL CHOLESTEROL 65.2 MG/DL (>40); LDL CHOLESTEROL 134.2 MG/DL (<100); NON-HDL-C 145.8 MG/DL; POTASSIUM SERUM 4.6 MMOL/L (3.5-5.1); SODIUM LEVEL 137 MMOL/L (136-145); TOTAL PROTEIN 8.2 G/DL (5.7-8.2); TRIGLYCERIDES LEVEL 58 MG/DL (<150)
[2024-03-12 16:05] LABS: FERRITIN 218.7 NG/ML (7.3-270.7)
== END ==
LOC: M PLALAB 12:05
PROVIDERS: ATTEND Family Medicine
DX: N18.31 Chronic kidney disease, stage 3a (principal); I35.8 Other nonrheumatic aortic valve disorders; M81.0 Age-related osteoporosis without current pathological fracture

== ENCOUNTER → 2025-01-18 | Outpatient (CLI) | payer MEDICARE ==
[~2025-01-18] MED LIST changes: +PRED-1142; +PRED-1142 PO; -PRED1TABL; -PRED1TABL PO
== END ==
LOC: M PLAIMG 10:12
PROVIDERS: ATTEND Podiatrist
DX: M21.619 Bunion of unspecified foot (principal); M20.41 Other hammer toe(s) (acquired), right foot; L89.891 Pressure ulcer of other site, stage 1; M77.31 Calcaneal spur, right foot; M19.071 Primary osteoarthritis, right ankle and foot; M20.11 Hallux valgus (acquired), right foot

== ENCOUNTER → 2025-02-08 | Outpatient (CLI) | payer MEDICARE | LOC: M WUC 11:39 | PROVIDERS: ATTEND Physician Assistant | DX: R06.02 Shortness of breath (principal) ==